=== PATIENT | male | born 1950 | race African-American/Black ===

== ENCOUNTER 2016-09-24 11:39 | Emergency (ER) | payer MEDICAID ==
[~2016-09-24] VITALS: Ht 180.3 cm; Wt 70.0 kg
[~2016-09-24 11:39] MED LIST: ASPI-1159 PO; ATOR-2 PO; FLUO-124 PO; FURO-151 PO; HYDROCODONE; LISI10TA5 PO; METO25TA6 PO; PANT40TA4 PO; RIVA10TA PO
[2016-09-24] MEDS ORDERED: SODIUM CHLORIDE 0.9% 1,000 ML IV ONE (11:53)
[2016-09-24 12:33] LABS: BASOPHILS % 0.6 % (0.0-2.0); EOSINOPHILS % 0.1 % (0.0-5.0); HEMATOCRIT. 37.8 % (42.0-52.0); HEMOGLOBIN. 12.5 g/dL (14.0-18.0); LYMPHOCYTES % 12.6 % (20.0-50.0); MEAN CORPUSCULAR HEMOGLOBIN 30.3 pg (28.0-32.0); MEAN PLATELET VOLUME 8.3 fl (7.4-10.4); NEUTROPHILS % 74.7 % (40.0-76.0); PLATELET 162 x1000/uL (130-400); RED BLOOD CELL COUNT 4.11 mill/uL (4.7-6.1)
[2016-09-24 12:44] LABS: INR 1.3; PARTIAL THROMBOPLASTIN TIME 39.3 sec (24.0-34.0)
[2016-09-24 12:51] LABS: CARBON DIOXIDE 25 mEq/L (21-32); CHLORIDE 103 mEq/L (98-107); TROPONIN I < 0.02 ng/mL (0.00-0.04)
[2016-09-24 13:19] VITALS: BP 138/79
== END 2016-09-24 14:43 | disposition left against medical advice (07) ==
LOC: ER 11:39
DX: R00.2 Palpitations (principal); R55 Syncope and collapse; I51.9 Heart disease, unspecified; I10 Essential (primary) hypertension; Z95.1 Presence of aortocoronary bypass graft; Z79.82 Long term (current) use of aspirin
CPT/HCPCS: 36415; 76775; 80053; 83735; 83880; 84484; 85025; 85610; 85730; 93005; 96360; 96361; 99285; J7030; Z7610

== ENCOUNTER 2016-12-03 01:08 | Emergency (ER) | payer MEDICAID ==
[~2016-12-03] VITALS: Ht 182.9 cm; Wt 68.0 kg
[2016-12-03 05:15] VITALS: BP 132/88
== END 2016-12-03 08:12 | disposition home or self-care (01) ==
LOC: ER 01:14
DX: Z76.0 Encounter for issue of repeat prescription (principal); I10 Essential (primary) hypertension; Z59.0 Homelessness; Z95.1 Presence of aortocoronary bypass graft; Z79.82 Long term (current) use of aspirin; Z79.01 Long term (current) use of anticoagulants
CPT/HCPCS: 99283

== ENCOUNTER 2017-04-03 14:25 | Emergency (ER) | payer MEDICARE, MEDICAID ==
[~2017-04-03] VITALS: Ht 185.4 cm; Wt 74.0 kg
[2017-04-03] MEDS ORDERED: ACETAMINOPHEN 325MG TABLET PO ONE (17:45)
[2017-04-03 19:58] LABS: BASOPHILS % 0.8 % (0.0-2.0); EOSINOPHILS % 0.5 % (0.0-5.0); HEMATOCRIT. 39.7 % (42.0-52.0); HEMOGLOBIN. 13.3 g/dL (14.0-18.0); LYMPHOCYTES % 16.9 % (20.0-50.0); MEAN CORPUSCULAR HEMOGLOBIN 31.1 pg (28.0-32.0); MEAN CORPUSCULAR VOLUME 93.1 fL (80.0-94.0); MEAN PLATELET VOLUME 8.7 fl (7.4-10.4); MONOCYTES % 9.6 % (2.0-8.0); NEUTROPHILS % 72.2 % (40.0-76.0); PLATELET 202 x1000/uL (130-400); RED BLOOD CELL COUNT 4.26 mill/uL (4.7-6.1); RED CELL DISTRIBUTION WIDTH 14.9 % (11.6-14.6)
[2017-04-03 20:02] LABS: INR 0.9; PROTHROMBIN TIME 9.9 sec (9.4-11.6)
[2017-04-03 20:06] LABS: CHLORIDE 102 mEq/L (98-107)
[2017-04-03] MEDS ORDERED: RIVAROXABAN 15 MG TABLET PO ONE (20:30)
[2017-04-03 20:45] VITALS: BP 128/77
== END 2017-04-03 20:50 | disposition home or self-care (01) ==
LOC: ER 15:49
DX: M79.672 Pain in left foot (principal); I10 Essential (primary) hypertension; Z79.01 Long term (current) use of anticoagulants; Z79.82 Long term (current) use of aspirin; Z86.718 Personal history of other venous thrombosis and embolism; Z87.891 Personal history of nicotine dependence; Z95.1 Presence of aortocoronary bypass graft
CPT/HCPCS: 36415; 73630; 80048; 85025; 85610; 93971; 99285

== ENCOUNTER 2017-05-08 23:03 | Emergency (ER) | payer MEDICARE, MEDICAID ==
[~2017-05-08] VITALS: Ht 185.4 cm; Wt 76.0 kg
[2017-05-09] MEDS ORDERED: LORAZEPAM 1MG TABLET PO ONE (06:45)
[2017-05-09] MEDS ORDERED: DEXAMETHASONE 10 MG/ML VIAL IM ONE (06:45)
[2017-05-09] MEDS ORDERED: IBUPROFEN 800MG TABLET PO ONE (06:45)
[2017-05-09 07:45] VITALS: BP 137/81
== END 2017-05-09 08:30 | disposition home or self-care (01) ==
LOC: ER 23:03
DX: M54.42 Lumbago with sciatica, left side (principal); M54.41 Lumbago with sciatica, right side; I10 Essential (primary) hypertension; F17.200 Nicotine dependence, unspecified, uncomplicated; Z86.718 Personal history of other venous thrombosis and embolism; Z79.82 Long term (current) use of aspirin
CPT/HCPCS: 96372; 99283; J1100

== ENCOUNTER 2017-08-10 18:25 | Emergency (ER) | payer MEDICARE, MEDICAID ==
[~2017-08-10] VITALS: Ht 177.8 cm; Wt 68.0 kg
[2017-08-10] MEDS ORDERED: FAMOTIDINE 20MG TABLET PO ONE (21:30)
[2017-08-10] MEDS ORDERED: ACETAMINOPHEN 325MG TABLET PO ONE (21:30)
[2017-08-10 21:41] LABS: BASOPHILS % 0.9 % (0.0-2.0); EOSINOPHILS % 1.1 % (0.0-5.0); HEMATOCRIT. 43.2 % (42.0-52.0); HEMOGLOBIN. 14.2 g/dL (14.0-18.0); LYMPHOCYTES % 37.5 % (20.0-50.0); MEAN CORPUSCULAR HEMOGLOBIN 31.9 pg (28.0-32.0); MEAN CORPUSCULAR VOLUME 97.1 fL (80.0-94.0); MEAN PLATELET VOLUME 8.2 fl (7.4-10.4); MONOCYTES % 10.1 % (2.0-8.0); NEUTROPHILS % 50.4 % (40.0-76.0); PLATELET 227 x1000/uL (130-400); RED BLOOD CELL COUNT 4.45 mill/uL (4.7-6.1); RED CELL DISTRIBUTION WIDTH 15.2 % (11.6-14.6)
[2017-08-10 21:47] LABS: CHLORIDE 105 mEq/L (98-107)
[2017-08-10 21:49] LABS: INR 1.3; PARTIAL THROMBOPLASTIN TIME 32.7 sec (23.4-31.0); PROTHROMBIN TIME 13.6 sec (9.4-11.6)
[2017-08-11 01:26] VITALS: BP 134/70
== END 2017-08-11 01:15 | disposition home or self-care (01) ==
LOC: ER 19:00
DX: K29.00 Acute gastritis without bleeding (principal); H01.003 Unspecified blepharitis right eye, unspecified eyelid; F10.10 Alcohol abuse, uncomplicated; I11.9 Hypertensive heart disease without heart failure; Y90.9 Presence of alcohol in blood, level not specified; Z86.718 Personal history of other venous thrombosis and embolism; Z79.01 Long term (current) use of anticoagulants; Z95.1 Presence of aortocoronary bypass graft
CPT/HCPCS: 36415; 80053; 83690; 85025; 85610; 85730; 99284

== ENCOUNTER 2017-12-13 18:29 | Inpatient (IN) | payer MEDICARE, MEDICAID ==
[~2017-12-13] VITALS: Ht 185.4 cm; Wt 75.3 kg
[2017-12-13] MEDS ORDERED: SODIUM CHLORIDE 0.9% 1,000 ML IV ONE (19:40)
[2017-12-13 22:16] LABS: BASOPHILS % 0.4 % (0.0-2.0); EOSINOPHILS % 1.1 % (0.0-5.0); HEMATOCRIT. 42.6 % (42.0-52.0); HEMOGLOBIN. 13.9 g/dL (14.0-18.0); LYMPHOCYTES % 25.7 % (20.0-50.0); MEAN CORPUSCULAR VOLUME 97.8 fL (80.0-94.0); MEAN PLATELET VOLUME 9.6 fl (7.4-10.4); MONOCYTES % 12.5 % (2.0-8.0); NEUTROPHILS % 60.3 % (40.0-76.0); PLATELET 147 x1000/uL (130-400); RED BLOOD CELL COUNT 4.35 mill/uL (4.7-6.1); RED CELL DISTRIBUTION WIDTH 14.8 % (11.6-14.6)
[2017-12-13 22:21] LABS: CHLORIDE 104 mEq/L (98-107)
[2017-12-13 22:24] LABS: INR 1.2; PARTIAL THROMBOPLASTIN TIME 41.9 sec (23.4-31.0); PROTHROMBIN TIME 12.5 sec (9.1-11.1)
[2017-12-13] MEDS ORDERED: ASPIRIN 325MG EC TABLET PO ONE (22:45)
[2017-12-14] MEDS ORDERED: ACETAMINOPHEN 650MG SUPP PR PRN (00:15)
[2017-12-14] MEDS ORDERED: NA PHOS,M-B/NA PHOS,DI-BA ENEMA 118ML PR PRN (00:15)
[2017-12-14] MEDS ORDERED: IPRATROPIUM/ALBUTEROL 0.5-3(2.5)MG/3ML NEB INH PRN (00:15)
[2017-12-14] MEDS ORDERED: ACETAMINOPHEN 650MG/20.3ML UDC GT PRN (00:15)
[2017-12-14] MEDS ORDERED: MAGNESIUM/ALUMINUM HYDROXIDE/SIMETHICONE 30ML UDC PO PRN (00:15)
[2017-12-14] MEDS ORDERED: ONDANSETRON HCL 4MG/2ML INJ IV PRN (00:15)
[2017-12-14] MEDS ORDERED: CLONIDINE 0.1MG TABLET PO PRN (00:15)
[2017-12-14] MEDS ORDERED: DEXTROSE 50% WATER 50ML SYRINGE IV PRN (00:15)
[2017-12-14 00:55] LABS: CLARITY URINE CLEAR (CLEAR); COLOR URINE YELLOW (YELLOW); KETONES URINE NEGATIVE (NEGATIVE); LEUKOCYTE ESTERASE URINE 3+ (NEGATIVE); NITRITE URINE NEGATIVE (NEGATIVE); OCCULT BLOOD URINE NEGATIVE (NEGATIVE); PH URINE 5.5 (4.5-8.0); PROTEIN URINE NEGATIVE (NEGATIVE); SPECIFIC GRAVITY URINE 1.011 (1.005-1.030)
[2017-12-14 01:15] VITALS: BP 135/76
[2017-12-14 01:36] LABS: *AMPHETAMINES SCREEN URINE NEGATIVE (NEGATIVE); *BARBITURATES SCREEN URINE NEGATIVE (NEGATIVE); *BENZODIAZEPINES SCREEN URINE NEGATIVE (NEGATIVE); *COCAINE SCREEN URINE NEGATIVE (NEGATIVE); CANNABINOID URINE SCREEN NEGATIVE (NEGATIVE); METHADONE URINE SCREEN NEGATIVE (NEGATIVE); OPIATES URINE SCREEN NEGATIVE (NEGATIVE); PHENCYCLIDINE URINE SCREEN NEGATIVE (NEGATIVE)
[2017-12-14 04:00] VITALS: BP 126/64
[2017-12-14] MEDS: SODIUM CHLORIDE 0.9% INJ 3ML FLUSH IVF SCH ×3 (06:00→21:18)
[2017-12-14 07:08] LABS: CREATINE KINASE 57 IU/L (39-308); CREATINE KINASE MB FRACTION < 1.0 ng/mL (0.5-3.6)
[2017-12-14] MEDS: BLOOD SUGAR DIAGNOSTIC STRIP TEST SCH ×4 (07:44→21:29)
[2017-12-14] MEDS: INSULIN LISPRO 100 UNITS/ML SUBCUT SCH ×4 (07:44→21:29)
[2017-12-14 08:00] VITALS: BP 120/73
[2017-12-14] MEDS: RIVAROXABAN 10 MG TABLET PO SCH (09:10)
[2017-12-14 12:00] VITALS: BP 130/68
[2017-12-14] MEDS ORDERED: PNEUMOCOCCAL 23-VAL P-SAC VAC 0.5 ML IM ONE (14:00)
[2017-12-14] MEDS ORDERED: INFLUENZA VIRUS VACCINE(AFLURIA) 0.5ML SYR IM ONE (14:00)
[2017-12-14 16:00] VITALS: BP 139/83
[2017-12-14] MEDS: SODIUM CHLORIDE 0.45% 1,000 ML IV SCH (17:36)
[2017-12-14 20:00] VITALS: BP 136/76
[2017-12-14 23:41] LABS: CREATINE KINASE 38 IU/L (39-308); CREATINE KINASE MB FRACTION < 1.0 ng/mL (0.5-3.6)
[2017-12-15] VITALS: BP 139/78
[2017-12-15 04:00] VITALS: BP 144/76
[2017-12-15] MEDS: SODIUM CHLORIDE 0.9% INJ 3ML FLUSH IVF SCH (05:59)
[2017-12-15] MEDS: BLOOD SUGAR DIAGNOSTIC STRIP TEST SCH ×2 (05:59→12:05)
[2017-12-15 08:04] LABS: BASOPHILS % 0.5 % (0.0-2.0); EOSINOPHILS % 0.7 % (0.0-5.0); HEMATOCRIT. 41.1 % (42.0-52.0); HEMOGLOBIN. 13.5 g/dL (14.0-18.0); LYMPHOCYTES % 19.6 % (20.0-50.0); MEAN CORPUSCULAR HEMOGLOBIN 31.8 pg (28.0-32.0); MEAN CORPUSCULAR VOLUME 96.7 fL (80.0-94.0); MEAN PLATELET VOLUME 9.6 fl (7.4-10.4); MONOCYTES % 13.1 % (2.0-8.0); NEUTROPHILS % 66.1 % (40.0-76.0); PLATELET 181 x1000/uL (130-400); RED BLOOD CELL COUNT 4.24 mill/uL (4.7-6.1); RED CELL DISTRIBUTION WIDTH 14.6 % (11.6-14.6)
[2017-12-15 08:18] LABS: CHLORIDE 105 mEq/L (98-107)
[2017-12-15 08:36] LABS: HDL CHOLESTEROL 45 mg/dL (40-59); LDL CHOLESTEROL 98 mg/dL (5-100)
[2017-12-15 08:45] VITALS: BP 136/81
[2017-12-15] MEDS: INSULIN LISPRO 100 UNITS/ML SUBCUT SCH ×2 (08:52→12:46)
[2017-12-15] MEDS ORDERED: ASPIRIN 81MG TABLET PO SCH (09:00)
[2017-12-15] MEDS ORDERED: FUROSEMIDE 40MG TABLET PO SCH (09:00)
[2017-12-15] MEDS ORDERED: FLUOXETINE HCL 20MG CAPSULE PO SCH (09:00)
[2017-12-15] MEDS: RIVAROXABAN 10 MG TABLET PO SCH (09:06)
[2017-12-15] MEDS: SODIUM CHLORIDE 0.45% 1,000 ML IV SCH (12:06)
[2017-12-15 12:25] VITALS: BP 121/71
[2017-12-15 13:47] VITALS: BP 129/71
[2017-12-15] MEDS ORDERED: ATORVASTATIN CALCIUM 40MG TABLET PO SCH (21:00)
[2017-12-18 19:11] LABS: 25-HYDROXY VITAMIN D3 8.8 ng/mL (.)
== END 2017-12-15 15:10 | disposition home or self-care (01) | DRG 422 ==
LOC: ER 18:29 → 6WST 23:49 → ENRESERV 12-14 00:20
PROVIDERS: ADMIT Family Medicine; ATTEND Family Medicine
DX: E86.0 Dehydration (principal); I11.0 Hypertensive heart disease with heart failure; E44.1 Mild protein-calorie malnutrition; I50.9 Heart failure, unspecified; R53.1 Weakness; Z59.0 Homelessness; I25.10 Atherosclerotic heart disease of native coronary artery without angina pectoris; R73.9 Hyperglycemia, unspecified; F32.9 Major depressive disorder, single episode, unspecified; E78.5 Hyperlipidemia, unspecified; Z86.718 Personal history of other venous thrombosis and embolism; Z95.1 Presence of aortocoronary bypass graft; Z68.21 Body mass index [BMI] 21.0-21.9, adult; Z79.01 Long term (current) use of anticoagulants; Z79.899 Other long term (current) drug therapy; Z79.82 Long term (current) use of aspirin; Z98.61 Coronary angioplasty status
CPT/HCPCS: 36415; 71045; 80061; 80305; 82306; 82550; 82553; 82962; 83880; 84134; 84443; 84484; 87077; 87186; 90686; 90732; 93005; 93970; 96360; 97162; 97166; 99285; J1815; J7030

== ENCOUNTER 2018-05-19 18:30 | Emergency (ER) | payer MEDICARE, OTHER ==
[~2018-05-19] VITALS: Ht 185.4 cm; Wt 77.0 kg
[2018-05-19 19:30] LABS: BASOPHILS % 1.2 % (0.0-2.0); EOSINOPHILS % 1.6 % (0.0-5.0); HEMATOCRIT. 46.5 % (42.0-52.0); HEMOGLOBIN. 15.3 g/dL (14.0-18.0); LYMPHOCYTES % 44.3 % (20.0-50.0); MEAN CORPUSCULAR HEMOGLOBIN 29.4 pg (28.0-32.0); MEAN CORPUSCULAR VOLUME 89.5 fL (80.0-94.0); MEAN PLATELET VOLUME 8.4 fl (7.4-10.4); MONOCYTES % 11.9 % (2.0-8.0); PLATELET 155 x1000/uL (130-400); RED BLOOD CELL COUNT 5.19 mill/uL (4.7-6.1); RED CELL DISTRIBUTION WIDTH 18.2 % (11.6-14.6)
[2018-05-19 19:32] LABS: CHLORIDE 107 mEq/L (98-107)
[2018-05-19 19:36] LABS: ETHANOL BLOOD 300 mg/dL
[2018-05-20 04:48] VITALS: BP 106/56
== END 2018-05-20 04:55 | disposition home or self-care (01) ==
LOC: ER 18:30
DX: F10.10 Alcohol abuse, uncomplicated (principal); F17.200 Nicotine dependence, unspecified, uncomplicated; I11.9 Hypertensive heart disease without heart failure; Z79.899 Other long term (current) drug therapy; Z79.82 Long term (current) use of aspirin; Y90.9 Presence of alcohol in blood, level not specified
CPT/HCPCS: 36415; 80320; 99283; G0480

== ENCOUNTER 2018-10-19 20:49 | Emergency (ER) | payer MEDICARE, OTHER ==
[~2018-10-19] VITALS: Ht 185.4 cm; Wt 88.0 kg
[~2018-10-19 20:49] MED LIST changes: -ASPI-1159 PO; +ASPI-1393 PO
[2018-10-19] MEDS ORDERED: LORAZEPAM 2MG/ML CPJ IM ONE (23:15)
[2018-10-20 08:44] VITALS: BP 135/90
== END 2018-10-20 08:45 | disposition home or self-care (01) ==
LOC: ER 20:49
DX: F10.229 Alcohol dependence with intoxication, unspecified (principal); Y90.9 Presence of alcohol in blood, level not specified; F91.8 Other conduct disorders
CPT/HCPCS: 70450; 96372; 99284; J2060

== ENCOUNTER 2019-02-18 18:43 | Emergency (ER) | payer MEDICARE, MEDICAID ==
[~2019-02-18] VITALS: Ht 185.4 cm; Wt 71.0 kg
[2019-02-19] MEDS ORDERED: SODIUM CHLORIDE 0.9% 1,000 ML IV ONE (05:54)
[2019-02-19 07:40] LABS: BASOPHILS % 1.1 % (0.0-2.0); EOSINOPHILS % 1.4 % (0.0-5.0); HEMATOCRIT. 47.3 % (42.0-52.0); HEMOGLOBIN. 15.7 g/dL (14.0-18.0); LYMPHOCYTES % 33.1 % (20.0-50.0); MEAN CORPUSCULAR HEMOGLOBIN 30.8 pg (28.0-32.0); MEAN CORPUSCULAR VOLUME 92.6 fL (80.0-94.0); MEAN PLATELET VOLUME 9.1 fl (7.4-10.4); MONOCYTES % 14.2 % (2.0-8.0); NEUTROPHILS % 50.2 % (40.0-76.0); PLATELET 181 x1000/uL (130-400); RED CELL DISTRIBUTION WIDTH 14.8 % (11.6-14.6)
[2019-02-19 07:45] LABS: CHLORIDE 104 mEq/L (98-107)
[2019-02-19 07:46] LABS: ETHANOL BLOOD 51 mg/dL
[2019-02-19 08:12] LABS: INR 1.1; PARTIAL THROMBOPLASTIN TIME 29.3 sec (23.4-31.0); PROTHROMBIN TIME 10.9 sec (9.6-11.0)
[2019-02-19 08:39] LABS: CLARITY URINE CLOUDY (CLEAR); COLOR URINE YELLOW (YELLOW); KETONES URINE TRACE (NEGATIVE); LEUKOCYTE ESTERASE URINE TRACE (NEGATIVE); NITRITE URINE POSITIVE (NEGATIVE); OCCULT BLOOD URINE NEGATIVE (NEGATIVE); PROTEIN URINE NEGATIVE (NEGATIVE); SPECIFIC GRAVITY URINE 1.017 (1.005-1.030)
[2019-02-19 09:10] LABS: *AMPHETAMINES SCREEN URINE NEGATIVE (NEGATIVE); *BARBITURATES SCREEN URINE NEGATIVE (NEGATIVE); *BENZODIAZEPINES SCREEN URINE NEGATIVE (NEGATIVE); *COCAINE SCREEN URINE NEGATIVE (NEGATIVE)
[2019-02-19 09:11] LABS: CANNABINOID URINE SCREEN NEGATIVE (NEGATIVE); OPIATES URINE SCREEN NEGATIVE (NEGATIVE); PHENCYCLIDINE URINE SCREEN NEGATIVE (NEGATIVE)
[2019-02-19 09:12] LABS: METHADONE URINE SCREEN NEGATIVE (NEGATIVE)
[2019-02-19] MEDS ORDERED: LORAZEPAM 2MG/ML CPJ IM ONE (09:30)
[2019-02-19] MEDS ORDERED: CEFTRIAXONE 1 G PREMIX 50 ML IV ONE (09:30)
[2019-02-19 10:39] VITALS: BP 125/78
== END 2019-02-19 10:45 | disposition home or self-care (01) ==
LOC: ER 18:43
DX: R55 Syncope and collapse (principal); N39.0 Urinary tract infection, site not specified; I10 Essential (primary) hypertension; F17.290 Nicotine dependence, other tobacco product, uncomplicated; Z98.890 Other specified postprocedural states; F10.20 Alcohol dependence, uncomplicated; Y90.2 Blood alcohol level of 40-59 mg/100 ml; Z86.718 Personal history of other venous thrombosis and embolism; Z79.82 Long term (current) use of aspirin; Z79.899 Other long term (current) drug therapy
CPT/HCPCS: 36415; 70450; 71045; 80053; 80305; 80320; 81003; 84484; 85025; 85610; 85730; 87077; 87086; 87186; 93005; 96361; 96374; 99284; J0696; J7030; G0480

== ENCOUNTER 2020-02-13 17:12 | Emergency (ER) | payer MEDICARE, MEDICAID ==
[~2020-02-13] VITALS: Ht 170.2 cm; Wt 70.0 kg
[~2020-02-13 17:12] MED LIST changes: -ASPI-1393 PO; +ASPI-1497 PO; -FLUO-124 PO; +FLUO20CA39 PO
[2020-02-13] MEDS ORDERED: HYDRALAZINE HCL 25MG TABLET PO ONE (17:45)
[2020-02-13 21:50] VITALS: BP 120/80
== END 2020-02-13 21:52 | disposition home or self-care (01) ==
LOC: ER 17:12
DX: I10 Essential (primary) hypertension (principal); F10.229 Alcohol dependence with intoxication, unspecified; Y90.0 Blood alcohol level of less than 20 mg/100 ml; Z79.82 Long term (current) use of aspirin; Z79.899 Other long term (current) drug therapy
CPT/HCPCS: 93005; 99283

== ENCOUNTER 2020-03-12 12:40 | Inpatient (IN) | payer MEDICARE, MEDICAID ==
[~2020-03-12] VITALS: Ht 182.9 cm; Wt 54.5 kg
[~2020-03-12 12:40] MED LIST changes: +LISI10TA26 PO; -LISI10TA5 PO; -PANT40TA4 PO; +PANT40TA51 PO
[2020-03-12] MEDS ORDERED: ONDANSETRON HCL 4MG/2ML INJ IV STA (13:09)
[2020-03-12] MEDS ORDERED: SODIUM CHLORIDE 0.9% 1,000 ML IV ONE (13:15)
[2020-03-12] MEDS ORDERED: PIPERACILLIN/TAZ 3.375G PREMIX 50 ML IV ONE (14:15)
[2020-03-12] MEDS ORDERED: VANCOMYCIN 1 G PREMIX 200 ML IV ONE (14:15)
[2020-03-12 14:49] LABS: BASOPHILS % 0.5 % (0.0-2.0); EOSINOPHILS % 0.4 % (0.0-5.0); HEMOGLOBIN. 16.7 g/dL (14.0-18.0); MEAN CORPUSCULAR VOLUME 89.8 fL (80.0-94.0); MEAN PLATELET VOLUME 10.8 fl (7.4-10.4); MONOCYTES % 11.5 % (2.0-8.0); NEUTROPHILS % 72.6 % (40.0-76.0); PLATELET 343 x1000/uL (130-400); RED BLOOD CELL COUNT 5.57 mill/uL (4.7-6.1); RED CELL DISTRIBUTION WIDTH 13.8 % (11.6-14.6)
[2020-03-12 14:56] LABS: CLARITY URINE CLOUDY (CLEAR); COLOR URINE DARK YELLOW (YELLOW); KETONES URINE TRACE (NEGATIVE); LEUKOCYTE ESTERASE URINE 3+ (NEGATIVE); NITRITE URINE POSITIVE (NEGATIVE); OCCULT BLOOD URINE NEGATIVE (NEGATIVE); PROTEIN URINE NEGATIVE (NEGATIVE)
[2020-03-12 15:41] LABS: CHLORIDE 100 mEq/L (98-107)
[2020-03-12 15:47] LABS: INR 1.1; PROTHROMBIN TIME 11.9 sec (9.6-11.0)
[2020-03-12] MEDS ORDERED: ACETAMINOPHEN 325MG TABLET PO PRN (22:45)
[2020-03-12] MEDS ORDERED: MAGNESIUM/ALUMINUM HYDROXIDE/SIMETHICONE 30ML UDC PO PRN (22:45)
[2020-03-12] MEDS ORDERED: ALBUTEROL 6.7GM HFA INHALER ORI PRN (22:45)
[2020-03-12] MEDS ORDERED: HYDROCODONE/ACETAMINOPHEN 5/325MG TABLET PO PRN (22:45)
[2020-03-12] MEDS ORDERED: GUAIFENESIN 200MG/10ML SUGAR FREE UDC PO PRN (22:45)
[2020-03-12] MEDS ORDERED: CEFTRIAXONE 1 G PREMIX 50 ML IV SCH (23:16)
[2020-03-12] MEDS ORDERED: ENOXAPARIN 40MG/0.4ML SYR SUBCUT SCH (23:19)
[2020-03-13 06:15] LABS: HEMATOCRIT. 48.2 % (42.0-52.0); HEMOGLOBIN. 15.5 g/dL (14.0-18.0); MEAN CORPUSCULAR HEMOGLOBIN 29.4 pg (28.0-32.0); MEAN CORPUSCULAR VOLUME 91.1 fL (80.0-94.0); MEAN PLATELET VOLUME 9.9 fl (7.4-10.4); PLATELET 263 x1000/uL (130-400); RED BLOOD CELL COUNT 5.29 mill/uL (4.7-6.1); RED CELL DISTRIBUTION WIDTH 13.2 % (11.6-14.6)
[2020-03-13 06:38] LABS: CHLORIDE 102 mEq/L (98-107)
[2020-03-13 06:51] LABS: HDL CHOLESTEROL 35 mg/dL (40-59)
[2020-03-13 06:52] LABS: PHOSPHORUS 3.2 mg/dL (2.5-4.9)
[2020-03-13 06:53] LABS: LDL CHOLESTEROL 99 mg/dL (5-100)
[2020-03-13 07:24] LABS: PLATELET ESTIMATE NORMAL
[2020-03-13] MEDS: AZITHROMYCIN 500 MG TABLET PO SCH (09:52)
[2020-03-13] MEDS: DEXAMETHASONE 10 MG/ML VIAL IV SCH (09:52)
[2020-03-13] MEDS: PANTOPRAZOLE SODIUM 40 MG/VIAL IV SCH (09:52)
[2020-03-13 12:00] VITALS: BP 110/77
[2020-03-13] MEDS: LISINOPRIL 10MG TABLET PO SCH (12:00)
[2020-03-13 15:28] VITALS: BP 138/77
[2020-03-13 16:00] VITALS: BP 122/69
[2020-03-13] MEDS: FUROSEMIDE 40MG TABLET PO SCH (16:17)
[2020-03-13] MEDS: FLUOXETINE HCL 20MG CAPSULE PO SCH (16:18)
[2020-03-13] MEDS: ASPIRIN 81MG EC TABLET PO SCH (16:18)
[2020-03-13] MEDS: METOPROLOL TARTRATE 25MG TABLET PO SCH (16:27)
[2020-03-13] MEDS: RIVAROXABAN 10 MG TABLET PO SCH (19:35)
[2020-03-13 20:00] VITALS: BP 117/73
[2020-03-13] MEDS: ATORVASTATIN CALCIUM 40MG TABLET PO SCH (22:15)
[2020-03-13] MEDS: CEFTRIAXONE 1,000 MG in DEXTROSE 5% WATER 50 ML IV SCH (22:25)
[2020-03-13] MEDS: LINEZOLID 600 MG PREMIX 300 ML IV SCH (22:25)
[2020-03-14] VITALS: BP_SYST 129; BP_SYST 142; BP_DIAS 63; BP_DIAS 83
[2020-03-14] MEDS: LORAZEPAM 2MG/ML CPJ IV PRN ×2 (00:47→19:33)
[2020-03-14 04:00] VITALS: BP 97/61
[2020-03-14] MEDS: LINEZOLID 600 MG PREMIX 300 ML IV SCH ×2 (09:00→20:02)
[2020-03-14] MEDS: LISINOPRIL 10MG TABLET PO SCH (09:00)
[2020-03-14] MEDS: METOPROLOL TARTRATE 25MG TABLET PO SCH ×2 (09:00→17:00)
[2020-03-14] MEDS: AZITHROMYCIN 500 MG TABLET PO SCH (09:01)
[2020-03-14] MEDS: FUROSEMIDE 40MG TABLET PO SCH (09:01)
[2020-03-14] MEDS: DOCUSATE SODIUM 100MG CAPSULE PO PRN (09:01)
[2020-03-14] MEDS: ASPIRIN 81MG EC TABLET PO SCH (09:01)
[2020-03-14] MEDS: FLUOXETINE HCL 20MG CAPSULE PO SCH (09:01)
[2020-03-14] MEDS: PANTOPRAZOLE SODIUM 40 MG/VIAL IV SCH (09:02)
[2020-03-14] MEDS: DEXAMETHASONE 10 MG/ML VIAL IV SCH (09:02)
[2020-03-14 10:14] LABS: HEMATOCRIT. 47.7 % (42.0-52.0); HEMOGLOBIN. 14.9 g/dL (14.0-18.0); MEAN CORPUSCULAR HEMOGLOBIN 29.2 pg (28.0-32.0); MEAN CORPUSCULAR VOLUME 93.2 fL (80.0-94.0); MEAN PLATELET VOLUME 10.3 fl (7.4-10.4); PLATELET 242 x1000/uL (130-400); RED BLOOD CELL COUNT 5.11 mill/uL (4.7-6.1); RED CELL DISTRIBUTION WIDTH 13.5 % (11.6-14.6)
[2020-03-14 10:23] LABS: CHLORIDE 108 mEq/L (98-107)
[2020-03-14 16:43] LABS: PLATELET ESTIMATE NORMAL
[2020-03-14 20:00] VITALS: BP 134/77
[2020-03-14] MEDS: ATORVASTATIN CALCIUM 40MG TABLET PO SCH (20:02)
[2020-03-14] MEDS: CEFTRIAXONE 1,000 MG in DEXTROSE 5% WATER 50 ML IV SCH (20:03)
[2020-03-15] VITALS: BP 102/60
[2020-03-15 04:00] VITALS: BP 114/57
[2020-03-15 08:00] VITALS: BP 95/60
[2020-03-15] MEDS: METOPROLOL TARTRATE 25MG TABLET PO SCH ×2 (09:00→17:00)
[2020-03-15] MEDS: LISINOPRIL 10MG TABLET PO SCH (09:00)
[2020-03-15] MEDS: DEXAMETHASONE 10 MG/ML VIAL IV SCH (09:39)
[2020-03-15] MEDS: AZITHROMYCIN 500 MG TABLET PO SCH (09:40)
[2020-03-15] MEDS: ASPIRIN 81MG EC TABLET PO SCH (09:40)
[2020-03-15] MEDS: FLUOXETINE HCL 20MG CAPSULE PO SCH (09:40)
[2020-03-15] MEDS: FUROSEMIDE 40MG TABLET PO SCH (09:41)
[2020-03-15] MEDS: FAMOTIDINE 20MG TABLET PO SCH (09:42)
[2020-03-15] MEDS ORDERED: ALBU18HF2 IH (16:33)
[2020-03-15] MEDS: RIVAROXABAN 10 MG TABLET PO SCH ×2 (17:54→17:56)
[2020-03-15 20:00] VITALS: BP 114/70
[2020-03-16] VITALS (7 sets, daily range): BP systolic 97–120; BP diastolic 53–69
[2020-03-16] MEDS: FAMOTIDINE 20MG TABLET PO SCH ×3 (00:12→20:35)
[2020-03-16] MEDS: ATORVASTATIN CALCIUM 40MG TABLET PO SCH ×2 (00:12→20:36)
[2020-03-16] MEDS: CEFTRIAXONE 1,000 MG in DEXTROSE 5% WATER 50 ML IV SCH ×2 (00:12→20:35)
[2020-03-16] MEDS: METOPROLOL TARTRATE 25MG TABLET PO SCH ×3 (09:00→17:00)
[2020-03-16] MEDS: LISINOPRIL 10MG TABLET PO SCH ×2 (09:00→09:45)
[2020-03-16] MEDS: ZINC SULFATE 220 MG ( 50 ) CAPSULE PO SCH (09:45)
[2020-03-16] MEDS: FLUOXETINE HCL 20MG CAPSULE PO SCH (09:45)
[2020-03-16] MEDS: AZITHROMYCIN 500 MG TABLET PO SCH (09:46)
[2020-03-16] MEDS: FUROSEMIDE 40MG TABLET PO SCH (09:46)
[2020-03-16] MEDS: ASCORBIC ACID 500 MG TABLET PO SCH (09:46)
[2020-03-16] MEDS: ASPIRIN 81MG EC TABLET PO SCH (09:46)
[2020-03-16] MEDS: DEXAMETHASONE 10 MG/ML VIAL IV SCH (09:46)
[2020-03-16] MEDS: RIVAROXABAN 10 MG TABLET PO SCH (18:07)
[2020-03-16] MEDS: LORAZEPAM 2MG/ML CPJ IV PRN (20:50)
[2020-03-17] VITALS: BP 120/71
[2020-03-17 04:00] VITALS: BP 136/70
[2020-03-17 08:00] VITALS: BP 108/69
[2020-03-17] MEDS: FAMOTIDINE 20MG TABLET PO SCH ×2 (08:33→21:02)
[2020-03-17] MEDS: ASPIRIN 81MG EC TABLET PO SCH (08:33)
[2020-03-17] MEDS: DEXAMETHASONE 10 MG/ML VIAL IV SCH (08:34)
[2020-03-17] MEDS: METOPROLOL TARTRATE 25MG TABLET PO SCH (08:34)
[2020-03-17] MEDS: ASCORBIC ACID 500 MG TABLET PO SCH (08:34)
[2020-03-17] MEDS: LISINOPRIL 10MG TABLET PO SCH (08:34)
[2020-03-17] MEDS: ZINC SULFATE 220 MG ( 50 ) CAPSULE PO SCH (08:34)
[2020-03-17] MEDS: FLUOXETINE HCL 20MG CAPSULE PO SCH (08:34)
[2020-03-17] MEDS: FUROSEMIDE 40MG TABLET PO SCH (08:34)
[2020-03-17 12:00] VITALS: BP 115/73
[2020-03-17] MEDS: RIVAROXABAN 10 MG TABLET PO SCH (18:01)
[2020-03-17 20:00] VITALS: BP 100/68
[2020-03-17] MEDS: CARVEDILOL 6.25 MG TABLET PO SCH (20:56)
[2020-03-17] MEDS: ATORVASTATIN CALCIUM 40MG TABLET PO SCH (21:02)
[2020-03-18] VITALS: BP 121/79
[2020-03-18 04:00] VITALS: BP 113/78
[2020-03-18 08:00] VITALS: BP 109/52
[2020-03-18] MEDS: CARVEDILOL 6.25 MG TABLET PO SCH ×2 (09:00→20:44)
[2020-03-18] MEDS: LISINOPRIL 10MG TABLET PO SCH (09:00)
[2020-03-18] MEDS: FLUOXETINE HCL 20MG CAPSULE PO SCH (09:10)
[2020-03-18] MEDS: ASCORBIC ACID 500 MG TABLET PO SCH (09:10)
[2020-03-18] MEDS: FUROSEMIDE 40MG TABLET PO SCH (09:10)
[2020-03-18] MEDS: FAMOTIDINE 20MG TABLET PO SCH ×2 (09:10→20:44)
[2020-03-18] MEDS: ZINC SULFATE 220 MG ( 50 ) CAPSULE PO SCH (09:10)
[2020-03-18] MEDS: ASPIRIN 81MG EC TABLET PO SCH (09:10)
[2020-03-18] MEDS: DEXAMETHASONE 10 MG/ML VIAL IV SCH (09:10)
[2020-03-18] MEDS: RIVAROXABAN 10 MG TABLET PO SCH (17:30)
[2020-03-18] MEDS: ATORVASTATIN CALCIUM 40MG TABLET PO SCH (20:43)
[2020-03-19 08:00] VITALS: BP 103/53
[2020-03-19] MEDS: LISINOPRIL 10MG TABLET PO SCH (09:00)
[2020-03-19] MEDS: CARVEDILOL 6.25 MG TABLET PO SCH ×2 (09:00→21:44)
[2020-03-19] MEDS: ASPIRIN 81MG EC TABLET PO SCH (09:20)
[2020-03-19] MEDS: ASCORBIC ACID 500 MG TABLET PO SCH (09:20)
[2020-03-19] MEDS: ZINC SULFATE 220 MG ( 50 ) CAPSULE PO SCH (09:20)
[2020-03-19] MEDS: FLUOXETINE HCL 20MG CAPSULE PO SCH (09:20)
[2020-03-19] MEDS: DEXAMETHASONE 10 MG/ML VIAL IV SCH (09:21)
[2020-03-19] MEDS: FUROSEMIDE 40MG TABLET PO SCH (09:21)
[2020-03-19] MEDS: FAMOTIDINE 20MG TABLET PO SCH ×2 (11:27→21:43)
[2020-03-19 16:00] VITALS: BP 109/59
[2020-03-19] MEDS: RIVAROXABAN 10 MG TABLET PO SCH (17:22)
[2020-03-19 20:00] VITALS: BP 110/62
[2020-03-19] MEDS: ATORVASTATIN CALCIUM 40MG TABLET PO SCH (21:43)
[2020-03-20] VITALS: BP 107/54
[2020-03-20 04:00] VITALS: BP 109/50
[2020-03-20 08:00] VITALS: BP 122/72
[2020-03-20] MEDS: DEXAMETHASONE 10 MG/ML VIAL IV SCH (09:55)
[2020-03-20] MEDS: CARVEDILOL 6.25 MG TABLET PO SCH ×2 (09:56→21:00)
[2020-03-20] MEDS: LISINOPRIL 10MG TABLET PO SCH (09:56)
[2020-03-20] MEDS: ASCORBIC ACID 500 MG TABLET PO SCH (09:56)
[2020-03-20] MEDS: FAMOTIDINE 20MG TABLET PO SCH ×2 (09:56→21:00)
[2020-03-20] MEDS: ZINC SULFATE 220 MG ( 50 ) CAPSULE PO SCH (09:56)
[2020-03-20] MEDS: FLUOXETINE HCL 20MG CAPSULE PO SCH (09:56)
[2020-03-20] MEDS: ASPIRIN 81MG EC TABLET PO SCH (09:56)
[2020-03-20] MEDS: FUROSEMIDE 40MG TABLET PO SCH (09:56)
[2020-03-20 12:00] VITALS: BP 128/74
[2020-03-20 16:00] VITALS: BP 99/50
[2020-03-20] MEDS: RIVAROXABAN 10 MG TABLET PO SCH (18:10)
[2020-03-20 20:00] VITALS: BP 101/65
[2020-03-20] MEDS: ATORVASTATIN CALCIUM 40MG TABLET PO SCH (20:59)
[2020-03-21] VITALS: BP 105/61
[2020-03-21 04:00] VITALS: BP 100/59
[2020-03-21 08:00] VITALS: BP 100/58
[2020-03-21] MEDS: LISINOPRIL 10MG TABLET PO SCH (09:00)
[2020-03-21] MEDS: CARVEDILOL 6.25 MG TABLET PO SCH ×2 (09:00→22:20)
[2020-03-21] MEDS: ASCORBIC ACID 500 MG TABLET PO SCH (10:51)
[2020-03-21] MEDS: DEXAMETHASONE 10 MG/ML VIAL IV SCH (10:52)
[2020-03-21] MEDS: FLUOXETINE HCL 20MG CAPSULE PO SCH (10:52)
[2020-03-21] MEDS: FUROSEMIDE 40MG TABLET PO SCH (10:53)
[2020-03-21] MEDS: ASPIRIN 81MG EC TABLET PO SCH (10:53)
[2020-03-21] MEDS: ZINC SULFATE 220 MG ( 50 ) CAPSULE PO SCH (10:54)
[2020-03-21] MEDS: FAMOTIDINE 20MG TABLET PO SCH ×2 (11:55→22:20)
[2020-03-21 12:00] VITALS: BP 101/65
[2020-03-21 16:00] VITALS: BP 129/74
[2020-03-21 18:30] LABS: HEMATOCRIT. 32.8 % (42.0-52.0); HEMOGLOBIN. 10.5 g/dL (14.0-18.0); MEAN CORPUSCULAR HEMOGLOBIN 29.5 pg (28.0-32.0); MEAN CORPUSCULAR VOLUME 91.7 fL (80.0-94.0); MEAN PLATELET VOLUME 9.4 fl (7.4-10.4); PLATELET 321 x1000/uL (130-400); RED BLOOD CELL COUNT 3.57 mill/uL (4.7-6.1); RED CELL DISTRIBUTION WIDTH 13.7 % (11.6-14.6)
[2020-03-21] MEDS: RIVAROXABAN 10 MG TABLET PO SCH (18:42)
[2020-03-21 18:49] LABS: CHLORIDE 103 mEq/L (98-107)
[2020-03-21 18:58] LABS: PLATELET ESTIMATE NORMAL
[2020-03-21 20:00] VITALS: BP 102/59
[2020-03-21] MEDS: ATORVASTATIN CALCIUM 40MG TABLET PO SCH (22:19)
[2020-03-22] VITALS: BP_SYST 105; BP_SYST 97; BP_DIAS 61; BP_DIAS 62
[2020-03-22 04:00] VITALS: BP 99/60
[2020-03-22] MEDS: FAMOTIDINE 20MG TABLET PO SCH ×2 (09:00→20:26)
[2020-03-22] MEDS: DEXAMETHASONE 10 MG/ML VIAL IV SCH (09:59)
[2020-03-22] MEDS: FUROSEMIDE 40MG TABLET PO SCH (09:59)
[2020-03-22] MEDS: CARVEDILOL 6.25 MG TABLET PO SCH ×2 (09:59→20:25)
[2020-03-22] MEDS: LISINOPRIL 10MG TABLET PO SCH (09:59)
[2020-03-22] MEDS: ASPIRIN 81MG EC TABLET PO SCH (09:59)
[2020-03-22] MEDS: ASCORBIC ACID 500 MG TABLET PO SCH (09:59)
[2020-03-22] MEDS: ZINC SULFATE 220 MG ( 50 ) CAPSULE PO SCH (09:59)
[2020-03-22] MEDS: FLUOXETINE HCL 20MG CAPSULE PO SCH (09:59)
[2020-03-22 12:00] VITALS: BP 111/67
[2020-03-22] MEDS: RIVAROXABAN 10 MG TABLET PO SCH (16:50)
[2020-03-22 20:00] VITALS: BP 94/49
[2020-03-22] MEDS: ATORVASTATIN CALCIUM 40MG TABLET PO SCH (20:26)
[2020-03-23 04:04] VITALS: BP 94/59
[2020-03-23] MEDS: LISINOPRIL 10MG TABLET PO SCH (09:00)
[2020-03-23] MEDS: DEXAMETHASONE 10 MG/ML VIAL IV SCH (09:00)
[2020-03-23] MEDS: CARVEDILOL 6.25 MG TABLET PO SCH ×2 (09:00→21:00)
[2020-03-23] MEDS: ZINC SULFATE 220 MG ( 50 ) CAPSULE PO SCH (09:00)
[2020-03-23] MEDS: ASCORBIC ACID 500 MG TABLET PO SCH (09:00)
[2020-03-23] MEDS: FUROSEMIDE 40MG TABLET PO SCH (09:00)
[2020-03-23] MEDS: FAMOTIDINE 20MG TABLET PO SCH ×2 (09:00→21:00)
[2020-03-23] MEDS: ASPIRIN 81MG EC TABLET PO SCH (09:00)
[2020-03-23] MEDS: FLUOXETINE HCL 20MG CAPSULE PO SCH (09:00)
[2020-03-23] MEDS ORDERED: SODIUM CHLORIDE 0.9% 1000ML BAG (SEPSIS BOLUS) IV NR (11:00)
[2020-03-23 11:59] LABS: CHLORIDE 107 mEq/L (98-107)
[2020-03-23 12:23] LABS: HEMATOCRIT. 29.9 % (42.0-52.0); HEMOGLOBIN. 9.5 g/dL (14.0-18.0); MEAN CORPUSCULAR VOLUME 94.6 fL (80.0-94.0); MEAN PLATELET VOLUME 10.2 fl (7.4-10.4); PLATELET 240 x1000/uL (130-400); RED BLOOD CELL COUNT 3.16 mill/uL (4.7-6.1); RED CELL DISTRIBUTION WIDTH 14.3 % (11.6-14.6)
[2020-03-23 12:47] LABS: BG BASE EXCESS -0.3 mmol/L (-2.0-2.0); BG CARBOXYHEMOGLOBIN 0.3 % (0.5-1.5); BG DEOXYHEMOGLOBIN 0.8 % (0.0-5.0); BG FRACTION INSPIRED OXYGEN 48; BG METHEMOGLOBIN 0.2 % (0.0-1.5); BG OXYGEN SATURATION 99.2 % (92.0-98.5); BG OXYHEMOGLOBIN 98.7 % (94.0-97.0); BG PCO2 32.3 mmHg (35.0-45.0); BG PO2 213.9 mmHg (75.0-100.0); BG SAMPLE SITE RIGHT RADIAL; BG TOTAL HEMOGLOBIN 8.9 g/dL (12.0-18.0); BG VENT MODE NASAL CANNULA
[2020-03-23 14:26] LABS: PLATELET ESTIMATE NORMAL
[2020-03-23] MEDS: RIVAROXABAN 10 MG TABLET PO SCH (17:00)
[2020-03-23] MEDS ORDERED: BISACODYL 10MG SUPP PR NR (18:00)
[2020-03-23] MEDS: ONDANSETRON HCL 4MG/2ML INJ IV PRN (18:02)
[2020-03-23] MEDS ORDERED: SODIUM CHLORIDE 0.9% 1000ML BAG (SEPSIS BOLUS) IV ONE (20:30)
[2020-03-23] MEDS: MIDODRINE HCL 5MG TABLET PO SCH (21:00)
[2020-03-23] MEDS: PANTOPRAZOLE SODIUM 40 MG/VIAL IV SCH (21:00)
[2020-03-23] MEDS: ATORVASTATIN CALCIUM 40MG TABLET PO SCH (21:00)
[2020-03-24] VITALS (19 sets, daily range): BP systolic 73–127; BP diastolic 27–68
[2020-03-24] MEDS ORDERED: CARVEDILOL 6.25 MG TABLET PO SCH (00:15)
[2020-03-24] MEDS: MIDODRINE HCL 5MG TABLET PO SCH ×3 (06:30→17:00)
[2020-03-24] MEDS: DEXAMETHASONE 10 MG/ML VIAL IV SCH (08:33)
[2020-03-24] MEDS: ASPIRIN 81MG EC TABLET PO SCH (08:33)
[2020-03-24] MEDS: ZINC SULFATE 220 MG ( 50 ) CAPSULE PO SCH (08:33)
[2020-03-24] MEDS: FLUOXETINE HCL 20MG CAPSULE PO SCH (08:33)
[2020-03-24] MEDS: CARVEDILOL 6.25 MG TABLET PO SCH ×3 (08:33→22:41)
[2020-03-24] MEDS: PANTOPRAZOLE SODIUM 40 MG/VIAL IV SCH ×2 (08:33→22:43)
[2020-03-24] MEDS: ASCORBIC ACID 500 MG TABLET PO SCH (08:33)
[2020-03-24] MEDS: FAMOTIDINE 20MG TABLET PO SCH (08:33)
[2020-03-24] MEDS: LISINOPRIL 10MG TABLET PO SCH (08:36)
[2020-03-24 08:53] LABS: BASOPHILS % 0.4 % (0.0-2.0); EOSINOPHILS % 0.2 % (0.0-5.0); HEMATOCRIT. 23.5 % (42.0-52.0); HEMOGLOBIN. 7.7 g/dL (14.0-18.0); LYMPHOCYTES % 18.9 % (20.0-50.0); MEAN CORPUSCULAR HEMOGLOBIN 30.1 pg (28.0-32.0); MEAN CORPUSCULAR VOLUME 91.2 fL (80.0-94.0); MEAN PLATELET VOLUME 10.1 fl (7.4-10.4); MONOCYTES % 7.8 % (2.0-8.0); NEUTROPHILS % 72.7 % (40.0-76.0); PLATELET 278 x1000/uL (130-400); RED BLOOD CELL COUNT 2.57 mill/uL (4.7-6.1)
[2020-03-24 09:06] LABS: CHLORIDE 110 mEq/L (98-107)
[2020-03-24] MEDS: DILTIAZEM HCL 30MG TABLET PO SCH ×2 (11:00→21:00)
[2020-03-24] MEDS ORDERED: PANTOPRAZOLE SODIUM 40 MG/VIAL IV SCH (12:30)
[2020-03-24] MEDS ORDERED: SODIUM CHLORIDE 0.9% 500 ML IV ONE ×2 (12:30→22:15)
[2020-03-24] MEDS ORDERED: MIDODRINE HCL 5MG TABLET PO SCH ×2 (12:30→17:00)
[2020-03-24] MEDS: ONDANSETRON HCL 4MG/2ML INJ IV PRN ×2 (13:51→18:57)
[2020-03-24] MEDS: SUCRALFATE 1G TABLET PO SCH ×3 (17:44→22:38)
[2020-03-24] MEDS: METOCLOPRAMIDE HCL 10MG/2ML VIAL IV SCH (17:45)
[2020-03-24] MEDS: DIGOXIN 250MCG TABLET PO SCH (17:45)
[2020-03-24] MEDS: ATORVASTATIN CALCIUM 40MG TABLET PO SCH ×2 (21:00→22:42)
[2020-03-24] MEDS ORDERED: SODIUM CHLORIDE 0.9% 1,000 ML IV SCH (22:30)
[2020-03-25] VITALS: BP 113/67
[2020-03-25] MEDS: METOCLOPRAMIDE HCL 10MG/2ML VIAL IV SCH ×4 (01:14→17:12)
[2020-03-25 04:00] VITALS: BP 102/53
[2020-03-25 05:59] LABS: BASOPHILS % 0.2 % (0.0-2.0); HEMATOCRIT. 24.9 % (42.0-52.0); HEMOGLOBIN. 8.3 g/dL (14.0-18.0); LYMPHOCYTES % 11.8 % (20.0-50.0); MEAN CORPUSCULAR HEMOGLOBIN 30.5 pg (28.0-32.0); MEAN PLATELET VOLUME 10.1 fl (7.4-10.4); MONOCYTES % 8.2 % (2.0-8.0); NEUTROPHILS % 79.8 % (40.0-76.0); PLATELET 209 x1000/uL (130-400); RED BLOOD CELL COUNT 2.74 mill/uL (4.7-6.1); RED CELL DISTRIBUTION WIDTH 14.2 % (11.6-14.6)
[2020-03-25 06:00] VITALS: BP 113/53
[2020-03-25 06:06] LABS: CHLORIDE 113 mEq/L (98-107)
[2020-03-25 06:14] LABS: TOTAL IRON BINDING CAPACITY 188 ug/dL (250-450)
[2020-03-25] MEDS: SUCRALFATE 1G TABLET PO SCH ×2 (06:23→11:29)
[2020-03-25 07:01] LABS: FOLIC ACID (FOLATE) SERUM 6.7 ng/mL (>5.38)
[2020-03-25 08:00] VITALS: BP 134/70
[2020-03-25] MEDS: PANTOPRAZOLE SODIUM 40 MG/VIAL IV SCH ×2 (10:03→20:50)
[2020-03-25] MEDS: DEXAMETHASONE 10 MG/ML VIAL IV SCH (10:04)
[2020-03-25] MEDS: ASCORBIC ACID 500 MG TABLET PO SCH (10:05)
[2020-03-25] MEDS: ASPIRIN 81MG EC TABLET PO SCH (10:05)
[2020-03-25] MEDS: CARVEDILOL 6.25 MG TABLET PO SCH ×2 (10:07→21:00)
[2020-03-25] MEDS: MIDODRINE HCL 5MG TABLET PO SCH ×2 (10:08→17:19)
[2020-03-25] MEDS: FLUOXETINE HCL 20MG CAPSULE PO SCH (10:08)
[2020-03-25] MEDS: ZINC SULFATE 220 MG ( 50 ) CAPSULE PO SCH (10:08)
[2020-03-25] MEDS: DILTIAZEM HCL 30MG TABLET PO SCH ×2 (10:08→21:00)
[2020-03-25] MEDS: SODIUM CHLORIDE 0.9% 1,000 ML IV SCH ×2 (11:29→18:15)
[2020-03-25] MEDS: SUCRALFATE 1 G/10 ML UDC PO SCH ×2 (17:12→21:00)
[2020-03-25] MEDS: DIGOXIN 250MCG TABLET PO SCH (17:19)
[2020-03-25 19:28] VITALS: BP 126/61
[2020-03-25] MEDS: ATORVASTATIN CALCIUM 40MG TABLET PO SCH (21:00)
[2020-03-25 22:01] VITALS: BP 136/64
[2020-03-26] VITALS (15 sets, daily range): BP systolic 106–170; BP diastolic 51–88
[2020-03-26] MEDS: METOCLOPRAMIDE HCL 10MG/2ML VIAL IV SCH ×5 (00:34→23:29)
[2020-03-26] MEDS: SUCRALFATE 1 G/10 ML UDC PO SCH ×4 (06:44→21:06)
[2020-03-26 07:22] LABS: CHLORIDE 118 mEq/L (98-107)
[2020-03-26] MEDS: DOCUSATE SODIUM 100MG CAPSULE PO PRN ×2 (08:01→17:00)
[2020-03-26] MEDS: DEXAMETHASONE 10 MG/ML VIAL IV SCH (08:02)
[2020-03-26] MEDS: ZINC SULFATE 220 MG ( 50 ) CAPSULE PO SCH (08:02)
[2020-03-26] MEDS: MIDODRINE HCL 5MG TABLET PO SCH ×2 (08:04→17:00)
[2020-03-26] MEDS: DILTIAZEM HCL 30MG TABLET PO SCH ×2 (08:05→21:07)
[2020-03-26] MEDS: CARVEDILOL 6.25 MG TABLET PO SCH ×2 (08:05→21:06)
[2020-03-26] MEDS: ASPIRIN 81MG EC TABLET PO SCH (08:05)
[2020-03-26] MEDS: FLUOXETINE HCL 20MG CAPSULE PO SCH (08:06)
[2020-03-26] MEDS: PANTOPRAZOLE SODIUM 40 MG/VIAL IV SCH ×2 (08:06→21:06)
[2020-03-26] MEDS: ASCORBIC ACID 500 MG TABLET PO SCH (08:06)
[2020-03-26 09:49] LABS: BASOPHILS % 0.2 % (0.0-2.0); EOSINOPHILS % 0.2 % (0.0-5.0); HEMATOCRIT. 23.8 % (42.0-52.0); HEMOGLOBIN. 7.5 g/dL (14.0-18.0); LYMPHOCYTES % 11.8 % (20.0-50.0); MEAN CORPUSCULAR HEMOGLOBIN 30.1 pg (28.0-32.0); MEAN CORPUSCULAR VOLUME 94.9 fL (80.0-94.0); MEAN PLATELET VOLUME 11.5 fl (7.4-10.4); MONOCYTES % 11.6 % (2.0-8.0); NEUTROPHILS % 76.2 % (40.0-76.0); PLATELET 94 x1000/uL (130-400); RED CELL DISTRIBUTION WIDTH 15.1 % (11.6-14.6)
[2020-03-26] MEDS: SODIUM CHLORIDE 0.9% 1,000 ML IV SCH (13:02)
[2020-03-26] MEDS: DIGOXIN 250MCG TABLET PO SCH (17:00)
[2020-03-26] MEDS: ATORVASTATIN CALCIUM 40MG TABLET PO SCH (21:06)
[2020-03-27] VITALS (13 sets, daily range): BP systolic 106–162; BP diastolic 46–80
[2020-03-27] MEDS: SODIUM CHLORIDE 0.9% 1,000 ML IV SCH ×2 (04:24→16:28)
[2020-03-27] MEDS: METOCLOPRAMIDE HCL 10MG/2ML VIAL IV SCH ×4 (06:01→23:52)
[2020-03-27] MEDS: SUCRALFATE 1 G/10 ML UDC PO SCH ×4 (06:01→20:07)
[2020-03-27 07:00] LABS: BASOPHILS % 0.1 % (0.0-2.0); EOSINOPHILS % 0.1 % (0.0-5.0); HEMATOCRIT. 25.8 % (42.0-52.0); HEMOGLOBIN. 8.7 g/dL (14.0-18.0); LYMPHOCYTES % 11.3 % (20.0-50.0); MEAN CORPUSCULAR HEMOGLOBIN 31.1 pg (28.0-32.0); MEAN CORPUSCULAR VOLUME 92.3 fL (80.0-94.0); MEAN PLATELET VOLUME 10.3 fl (7.4-10.4); MONOCYTES % 7.8 % (2.0-8.0); NEUTROPHILS % 80.7 % (40.0-76.0); PLATELET 142 x1000/uL (130-400); RED BLOOD CELL COUNT 2.79 mill/uL (4.7-6.1); RED CELL DISTRIBUTION WIDTH 14.8 % (11.6-14.6)
[2020-03-27 07:37] LABS: CHLORIDE 113 mEq/L (98-107)
[2020-03-27] MEDS: ASPIRIN 81MG EC TABLET PO SCH (09:00)
[2020-03-27] MEDS: CARVEDILOL 6.25 MG TABLET PO SCH ×2 (09:00→20:07)
[2020-03-27] MEDS: FLUOXETINE HCL 20MG CAPSULE PO SCH (09:47)
[2020-03-27] MEDS: MIDODRINE HCL 5MG TABLET PO SCH (09:47)
[2020-03-27] MEDS: DEXAMETHASONE 10 MG/ML VIAL IV SCH (09:48)
[2020-03-27] MEDS: ZINC SULFATE 220 MG ( 50 ) CAPSULE PO SCH (09:48)
[2020-03-27] MEDS: PANTOPRAZOLE SODIUM 40 MG/VIAL IV SCH ×2 (09:48→20:07)
[2020-03-27] MEDS: ASCORBIC ACID 500 MG TABLET PO SCH (09:48)
[2020-03-27] MEDS: ATORVASTATIN CALCIUM 40MG TABLET PO SCH (20:07)
[2020-03-28] VITALS (10 sets, daily range): BP systolic 114–167; BP diastolic 56–87
[2020-03-28] MEDS: METOCLOPRAMIDE HCL 10MG/2ML VIAL IV SCH ×3 (06:25→18:04)
[2020-03-28] MEDS: SUCRALFATE 1 G/10 ML UDC PO SCH ×4 (06:25→21:18)
[2020-03-28 07:34] LABS: CHLORIDE 109 mEq/L (98-107)
[2020-03-28 08:09] LABS: BASOPHILS % 0.2 % (0.0-2.0); HEMOGLOBIN. 8.2 g/dL (14.0-18.0); LYMPHOCYTES % 11.1 % (20.0-50.0); MEAN CORPUSCULAR HEMOGLOBIN 31.3 pg (28.0-32.0); MEAN CORPUSCULAR VOLUME 91.3 fL (80.0-94.0); MEAN PLATELET VOLUME 10.7 fl (7.4-10.4); NEUTROPHILS % 82.7 % (40.0-76.0); PLATELET 134 x1000/uL (130-400); RED BLOOD CELL COUNT 2.62 mill/uL (4.7-6.1); RED CELL DISTRIBUTION WIDTH 14.6 % (11.6-14.6)
[2020-03-28] MEDS: ZINC SULFATE 220 MG ( 50 ) CAPSULE PO SCH (09:03)
[2020-03-28] MEDS: FLUOXETINE HCL 20MG CAPSULE PO SCH (09:03)
[2020-03-28] MEDS: ASCORBIC ACID 500 MG TABLET PO SCH (09:03)
[2020-03-28] MEDS: CARVEDILOL 3.125 MG TABLET PO SCH ×2 (09:04→21:19)
[2020-03-28] MEDS: PANTOPRAZOLE SODIUM 40 MG/VIAL IV SCH ×3 (09:55→23:37)
[2020-03-28] MEDS: DEXAMETHASONE 10 MG/ML VIAL IV SCH (09:56)
[2020-03-28] MEDS: SODIUM CHLORIDE 0.9% 1,000 ML IV SCH (19:30)
[2020-03-28] MEDS: ATORVASTATIN CALCIUM 40MG TABLET PO SCH (21:18)
[2020-03-29] VITALS (10 sets, daily range): BP systolic 129–167; BP diastolic 72–85
[2020-03-29] MEDS: METOCLOPRAMIDE HCL 10MG/2ML VIAL IV SCH ×4 (06:20→18:37)
[2020-03-29] MEDS: SUCRALFATE 1 G/10 ML UDC PO SCH ×4 (06:20→20:02)
[2020-03-29 06:50] LABS: CHLORIDE 109 mEq/L (98-107)
[2020-03-29 07:04] LABS: BASOPHILS % 0.1 % (0.0-2.0); EOSINOPHILS % 0.4 % (0.0-5.0); HEMATOCRIT. 23.5 % (42.0-52.0); HEMOGLOBIN. 7.8 g/dL (14.0-18.0); LYMPHOCYTES % 14.2 % (20.0-50.0); MEAN CORPUSCULAR HEMOGLOBIN 30.2 pg (28.0-32.0); MEAN PLATELET VOLUME 10.6 fl (7.4-10.4); MONOCYTES % 7.7 % (2.0-8.0); NEUTROPHILS % 77.6 % (40.0-76.0); PLATELET 122 x1000/uL (130-400); RED BLOOD CELL COUNT 2.59 mill/uL (4.7-6.1)
[2020-03-29 07:12] LABS: PROTHROMBIN TIME 10.9 sec (9.6-11.0)
[2020-03-29] MEDS: CARVEDILOL 3.125 MG TABLET PO SCH ×2 (08:40→21:00)
[2020-03-29] MEDS: ASCORBIC ACID 500 MG TABLET PO SCH (08:41)
[2020-03-29] MEDS: FLUOXETINE HCL 20MG CAPSULE PO SCH (08:41)
[2020-03-29] MEDS: DEXAMETHASONE 10 MG/ML VIAL IV SCH (08:41)
[2020-03-29] MEDS: PANTOPRAZOLE SODIUM 40 MG/VIAL IV SCH ×2 (08:41→20:02)
[2020-03-29] MEDS: ZINC SULFATE 220 MG ( 50 ) CAPSULE PO SCH (08:41)
[2020-03-29] MEDS: AMLODIPINE 2.5MG TABLET PO SCH (09:26)
[2020-03-29] MEDS: SODIUM CHLORIDE 0.9% 1,000 ML IV SCH (15:30)
[2020-03-29] MEDS ORDERED: MIDAZOLAM HCL 2 MG/2 ML VIAL ONE (15:32)
[2020-03-29] MEDS ORDERED: PROPOFOL 200MG/20ML VIAL IV ONE (15:32)
[2020-03-29] MEDS ORDERED: LIDOCAINE HCL/PF 1% 10 MG/ML 5ML VIAL ONE (15:32)
[2020-03-29] MEDS ORDERED: ETOMIDATE 2MG/ML 10ML VIAL IV ONE (15:32)
[2020-03-29] MEDS ORDERED: GLYCOPYRROLATE 0.2 MG/ML 2ML VIAL ONE (15:46)
[2020-03-29] MEDS: ATORVASTATIN CALCIUM 40MG TABLET PO SCH (20:02)
[2020-03-30] VITALS (9 sets, daily range): BP systolic 116–153; BP diastolic 65–93
[2020-03-30] MEDS: METOCLOPRAMIDE HCL 10MG/2ML VIAL IV SCH ×4 (00:12→17:16)
[2020-03-30] MEDS: SUCRALFATE 1 G/10 ML UDC PO SCH ×4 (05:53→20:47)
[2020-03-30 07:18] LABS: BASOPHILS % 0.1 % (0.0-2.0); EOSINOPHILS % 0.8 % (0.0-5.0); HEMATOCRIT. 26.7 % (42.0-52.0); LYMPHOCYTES % 16.3 % (20.0-50.0); MEAN CORPUSCULAR VOLUME 91.9 fL (80.0-94.0); MEAN PLATELET VOLUME 10.6 fl (7.4-10.4); MONOCYTES % 7.2 % (2.0-8.0); NEUTROPHILS % 75.6 % (40.0-76.0); PLATELET 129 x1000/uL (130-400); RED BLOOD CELL COUNT 2.91 mill/uL (4.7-6.1)
[2020-03-30] MEDS: AMLODIPINE 2.5MG TABLET PO SCH (08:13)
[2020-03-30] MEDS: PANTOPRAZOLE SODIUM 40 MG/VIAL IV SCH ×2 (08:13→20:47)
[2020-03-30] MEDS: CARVEDILOL 3.125 MG TABLET PO SCH ×2 (08:13→20:48)
[2020-03-30] MEDS: ASCORBIC ACID 500 MG TABLET PO SCH (08:13)
[2020-03-30] MEDS: FLUOXETINE HCL 20MG CAPSULE PO SCH (08:13)
[2020-03-30] MEDS: DEXAMETHASONE 10 MG/ML VIAL IV SCH (08:13)
[2020-03-30] MEDS: ZINC SULFATE 220 MG ( 50 ) CAPSULE PO SCH (08:13)
[2020-03-30 08:20] LABS: CHLORIDE 108 mEq/L (98-107)
[2020-03-30] MEDS: SODIUM CHLORIDE 0.9% 1,000 ML IV SCH (11:30)
[2020-03-30] MEDS: ATORVASTATIN CALCIUM 40MG TABLET PO SCH (20:48)
[2020-03-31] VITALS: BP 140/69
[2020-03-31 04:00] VITALS: BP 149/72
[2020-03-31] MEDS: METOCLOPRAMIDE HCL 10MG/2ML VIAL IV SCH ×4 (06:50→18:25)
[2020-03-31] MEDS: SODIUM CHLORIDE 0.9% 1,000 ML IV SCH (06:50)
[2020-03-31] MEDS: SUCRALFATE 1 G/10 ML UDC PO SCH ×4 (06:53→21:49)
[2020-03-31 07:21] LABS: BASOPHILS % 0.1 % (0.0-2.0); EOSINOPHILS % 0.8 % (0.0-5.0); HEMATOCRIT. 24.4 % (42.0-52.0); HEMOGLOBIN. 8.4 g/dL (14.0-18.0); LYMPHOCYTES % 24.5 % (20.0-50.0); MEAN CORPUSCULAR HEMOGLOBIN 31.4 pg (28.0-32.0); MEAN CORPUSCULAR VOLUME 91.4 fL (80.0-94.0); MEAN PLATELET VOLUME 10.5 fl (7.4-10.4); MONOCYTES % 9.5 % (2.0-8.0); NEUTROPHILS % 65.1 % (40.0-76.0); PLATELET 125 x1000/uL (130-400); RED BLOOD CELL COUNT 2.67 mill/uL (4.7-6.1); RED CELL DISTRIBUTION WIDTH 15.4 % (11.6-14.6)
[2020-03-31 07:28] LABS: CHLORIDE 104 mEq/L (98-107)
[2020-03-31 08:00] VITALS: BP 137/57
[2020-03-31] MEDS: ASCORBIC ACID 500 MG TABLET PO SCH (09:29)
[2020-03-31] MEDS: DEXAMETHASONE 10 MG/ML VIAL IV SCH (09:29)
[2020-03-31] MEDS: PANTOPRAZOLE SODIUM 40 MG/VIAL IV SCH ×2 (09:29→21:48)
[2020-03-31] MEDS: FLUOXETINE HCL 20MG CAPSULE PO SCH (09:29)
[2020-03-31] MEDS: ZINC SULFATE 220 MG ( 50 ) CAPSULE PO SCH (09:29)
[2020-03-31] MEDS: AMLODIPINE 2.5MG TABLET PO SCH (09:31)
[2020-03-31] MEDS: CARVEDILOL 3.125 MG TABLET PO SCH ×2 (09:32→21:49)
[2020-03-31 12:00] VITALS: BP 115/52
[2020-03-31 16:00] VITALS: BP 118/44
[2020-03-31] MEDS: LORAZEPAM 2MG/ML CPJ IV PRN (18:26)
[2020-03-31 20:00] VITALS: BP 154/76
[2020-03-31] MEDS: ATORVASTATIN CALCIUM 40MG TABLET PO SCH (21:48)
[2020-04-01] VITALS: BP 132/67
[2020-04-01] MEDS: METOCLOPRAMIDE HCL 10MG/2ML VIAL IV SCH ×4 (00:04→17:49)
[2020-04-01] MEDS: SODIUM CHLORIDE 0.9% 1,000 ML IV SCH (03:30)
[2020-04-01 04:00] VITALS: BP 149/74
[2020-04-01] MEDS: SUCRALFATE 1 G/10 ML UDC PO SCH ×4 (06:21→21:44)
[2020-04-01 08:00] VITALS: BP 139/64
[2020-04-01] MEDS: ASCORBIC ACID 500 MG TABLET PO SCH (08:45)
[2020-04-01] MEDS: ZINC SULFATE 220 MG ( 50 ) CAPSULE PO SCH (08:45)
[2020-04-01] MEDS: PANTOPRAZOLE SODIUM 40 MG/VIAL IV SCH ×2 (08:45→21:44)
[2020-04-01] MEDS: DEXAMETHASONE 10 MG/ML VIAL IV SCH (08:45)
[2020-04-01] MEDS: FLUOXETINE HCL 20MG CAPSULE PO SCH (08:46)
[2020-04-01] MEDS: CARVEDILOL 3.125 MG TABLET PO SCH ×2 (08:46→21:44)
[2020-04-01] MEDS: AMLODIPINE 2.5MG TABLET PO SCH (08:47)
[2020-04-01] MEDS: LORAZEPAM 2MG/ML CPJ IV PRN (09:13)
[2020-04-01 12:00] VITALS: BP 159/61
[2020-04-01] MEDS: CLONIDINE 0.1MG TABLET PO PRN (15:33)
[2020-04-01 16:00] VITALS: BP 176/78
[2020-04-01 20:00] VITALS: BP 158/76
[2020-04-01] MEDS: ATORVASTATIN CALCIUM 40MG TABLET PO SCH (21:45)
[2020-04-02] VITALS: BP 140/64
[2020-04-02] MEDS: METOCLOPRAMIDE HCL 10MG/2ML VIAL IV SCH ×4 (00:46→17:54)
[2020-04-02] MEDS: SODIUM CHLORIDE 0.9% 1,000 ML IV SCH (00:47)
[2020-04-02 04:00] VITALS: BP 152/72
[2020-04-02] MEDS: SUCRALFATE 1 G/10 ML UDC PO SCH ×4 (06:20→22:01)
[2020-04-02 08:00] VITALS: BP 142/62
[2020-04-02] MEDS: CARVEDILOL 3.125 MG TABLET PO SCH ×2 (08:52→22:04)
[2020-04-02] MEDS: FLUOXETINE HCL 20MG CAPSULE PO SCH (09:06)
[2020-04-02] MEDS: AMLODIPINE 2.5MG TABLET PO SCH (09:07)
[2020-04-02] MEDS: ZINC SULFATE 220 MG ( 50 ) CAPSULE PO SCH (09:07)
[2020-04-02] MEDS: DEXAMETHASONE 10 MG/ML VIAL IV SCH (09:07)
[2020-04-02] MEDS: ASCORBIC ACID 500 MG TABLET PO SCH (09:07)
[2020-04-02] MEDS: PANTOPRAZOLE SODIUM 40 MG/VIAL IV SCH ×2 (09:08→22:04)
[2020-04-02 12:00] VITALS: BP 114/63
[2020-04-02 16:00] VITALS: BP 135/76
[2020-04-02 20:00] VITALS: BP 128/60
[2020-04-02] MEDS: ATORVASTATIN CALCIUM 40MG TABLET PO SCH (22:01)
[2020-04-03] VITALS: BP 139/78
[2020-04-03 04:00] VITALS: BP 152/63
[2020-04-03] MEDS: SUCRALFATE 1 G/10 ML UDC PO SCH ×4 (07:01→21:33)
[2020-04-03] MEDS: METOCLOPRAMIDE HCL 10MG/2ML VIAL IV SCH ×2 (07:01)
[2020-04-03 08:00] VITALS: BP 161/72
[2020-04-03] MEDS: CARVEDILOL 3.125 MG TABLET PO SCH ×2 (09:00→21:34)
[2020-04-03] MEDS: ZINC SULFATE 220 MG ( 50 ) CAPSULE PO SCH (09:43)
[2020-04-03] MEDS: DEXAMETHASONE 10 MG/ML VIAL IV SCH (09:43)
[2020-04-03] MEDS: FLUOXETINE HCL 20MG CAPSULE PO SCH (09:43)
[2020-04-03] MEDS: AMLODIPINE 2.5MG TABLET PO SCH (09:43)
[2020-04-03] MEDS: ASCORBIC ACID 500 MG TABLET PO SCH (09:43)
[2020-04-03 12:00] VITALS: BP 140/68
[2020-04-03] MEDS: PANTOPRAZOLE SODIUM 40 MG/VIAL IV SCH ×2 (12:20→21:33)
[2020-04-03 16:00] VITALS: BP 123/71
[2020-04-03 20:00] VITALS: BP 128/70
[2020-04-03] MEDS: ATORVASTATIN CALCIUM 40MG TABLET PO SCH (21:33)
[2020-04-04] VITALS (7 sets, daily range): BP systolic 120–166; BP diastolic 56–81
[2020-04-04] MEDS: CLONIDINE 0.1MG TABLET PO PRN (04:17)
[2020-04-04] MEDS: SUCRALFATE 1 G/10 ML UDC PO SCH ×4 (06:28→21:07)
[2020-04-04 06:39] LABS: BASOPHILS % 0.3 % (0.0-2.0); EOSINOPHILS % 0.7 % (0.0-5.0); HEMATOCRIT. 24.9 % (42.0-52.0); HEMOGLOBIN. 8.5 g/dL (14.0-18.0); LYMPHOCYTES % 25.1 % (20.0-50.0); MEAN CORPUSCULAR HEMOGLOBIN 31.3 pg (28.0-32.0); MEAN CORPUSCULAR VOLUME 91.2 fL (80.0-94.0); MEAN PLATELET VOLUME 9.4 fl (7.4-10.4); NEUTROPHILS % 64.9 % (40.0-76.0); PLATELET 151 x1000/uL (130-400); RED BLOOD CELL COUNT 2.73 mill/uL (4.7-6.1); RED CELL DISTRIBUTION WIDTH 15.7 % (11.6-14.6)
[2020-04-04 06:49] LABS: CHLORIDE 106 mEq/L (98-107)
[2020-04-04] MEDS: DEXAMETHASONE 10 MG/ML VIAL IV SCH (08:54)
[2020-04-04] MEDS: ZINC SULFATE 220 MG ( 50 ) CAPSULE PO SCH (08:54)
[2020-04-04] MEDS: PANTOPRAZOLE SODIUM 40 MG/VIAL IV SCH ×2 (08:54→21:08)
[2020-04-04] MEDS: ASCORBIC ACID 500 MG TABLET PO SCH (08:55)
[2020-04-04] MEDS: FLUOXETINE HCL 20MG CAPSULE PO SCH (08:55)
[2020-04-04] MEDS: CARVEDILOL 3.125 MG TABLET PO SCH ×2 (08:55→21:07)
[2020-04-04] MEDS ORDERED: AMLODIPINE 5MG TABLET PO SCH (09:00)
[2020-04-04] MEDS ORDERED: POTASSIUM CHLORIDE 20MEQ TABLET SR PO NR (09:30)
[2020-04-04] MEDS: AMLODIPINE 5MG TABLET PO SCH ×2 (09:30→21:08)
[2020-04-04] MEDS: SODIUM CHLORIDE 0.9% 1,000 ML IV SCH (11:30)
[2020-04-04] MEDS: ATORVASTATIN CALCIUM 40MG TABLET PO SCH (21:08)
[2020-04-04 23:40] LABS: ETHANOL BLOOD < 10 mg/dL
[2020-04-04 23:44] LABS: LDL CHOLESTEROL 48 mg/dL (5-100)
[2020-04-04 23:45] LABS: HDL CHOLESTEROL 53 mg/dL (40-59)
[2020-04-04 23:46] LABS: T4 FREE 0.86 ng/dL (0.76-1.46)
[2020-04-04 23:56] LABS: FOLIC ACID (FOLATE) SERUM 6.3 ng/mL (>5.38)
[2020-04-05] VITALS: BP 135/74
[2020-04-05 04:00] VITALS: BP 136/81
[2020-04-05 06:05] LABS: BASOPHILS % 0.4 % (0.0-2.0); EOSINOPHILS % 1.3 % (0.0-5.0); HEMATOCRIT. 27.7 % (42.0-52.0); LYMPHOCYTES % 20.5 % (20.0-50.0); MEAN CORPUSCULAR HEMOGLOBIN 30.3 pg (28.0-32.0); MEAN CORPUSCULAR VOLUME 92.9 fL (80.0-94.0); MEAN PLATELET VOLUME 9.6 fl (7.4-10.4); MONOCYTES % 9.3 % (2.0-8.0); NEUTROPHILS % 68.5 % (40.0-76.0); PLATELET 156 x1000/uL (130-400); RED BLOOD CELL COUNT 2.98 mill/uL (4.7-6.1)
[2020-04-05 06:11] LABS: CHLORIDE 110 mEq/L (98-107)
[2020-04-05 08:00] VITALS: BP 146/74
[2020-04-05] MEDS: SUCRALFATE 1 G/10 ML UDC PO SCH ×4 (08:17→21:12)
[2020-04-05] MEDS: PANTOPRAZOLE SODIUM 40 MG/VIAL IV SCH ×2 (08:17→21:13)
[2020-04-05] MEDS: DEXAMETHASONE 10 MG/ML VIAL IV SCH (08:17)
[2020-04-05] MEDS: SODIUM CHLORIDE 0.9% 1,000 ML IV SCH (08:17)
[2020-04-05] MEDS: ASCORBIC ACID 500 MG TABLET PO SCH (08:18)
[2020-04-05] MEDS: AMLODIPINE 5MG TABLET PO SCH ×2 (08:18→21:13)
[2020-04-05] MEDS: FLUOXETINE HCL 20MG CAPSULE PO SCH (08:18)
[2020-04-05] MEDS: CARVEDILOL 3.125 MG TABLET PO SCH ×2 (08:18→21:13)
[2020-04-05] MEDS: ZINC SULFATE 220 MG ( 50 ) CAPSULE PO SCH (08:18)
[2020-04-05 12:00] VITALS: BP 146/67
[2020-04-05 16:00] VITALS: BP 131/70
[2020-04-05 20:00] VITALS: BP 132/70
[2020-04-05] MEDS: ATORVASTATIN CALCIUM 40MG TABLET PO SCH (21:13)
[2020-04-06] VITALS: BP 122/65
[2020-04-06] MEDS: SODIUM CHLORIDE 0.9% 1,000 ML IV SCH (03:30)
[2020-04-06 04:00] VITALS: BP 150/68
[2020-04-06 08:00] VITALS: BP 141/69
[2020-04-06] MEDS: PANTOPRAZOLE SODIUM 40 MG/VIAL IV SCH ×2 (09:16→21:31)
[2020-04-06] MEDS: ZINC SULFATE 220 MG ( 50 ) CAPSULE PO SCH (09:17)
[2020-04-06] MEDS: DEXAMETHASONE 10 MG/ML VIAL IV SCH (09:17)
[2020-04-06] MEDS: AMLODIPINE 5MG TABLET PO SCH ×2 (09:17→21:33)
[2020-04-06] MEDS: ASCORBIC ACID 500 MG TABLET PO SCH (09:18)
[2020-04-06] MEDS: CARVEDILOL 3.125 MG TABLET PO SCH ×2 (09:18→21:31)
[2020-04-06] MEDS: SUCRALFATE 1 G/10 ML UDC PO SCH ×4 (09:18→21:30)
[2020-04-06] MEDS: FLUOXETINE HCL 20MG CAPSULE PO SCH (09:18)
[2020-04-06] MEDS: CYANOCOBALAMIN 1000MCG/ML VIAL IM SCH (11:03)
[2020-04-06 12:00] VITALS: BP 151/88
[2020-04-06 16:00] VITALS: BP 150/78
[2020-04-06 20:00] VITALS: BP 141/63
[2020-04-06] MEDS: ATORVASTATIN CALCIUM 40MG TABLET PO SCH (21:31)
[2020-04-07] VITALS: BP 106/51
[2020-04-07 04:00] VITALS: BP 126/53
[2020-04-07] MEDS: SUCRALFATE 1 G/10 ML UDC PO SCH ×4 (06:20→21:34)
[2020-04-07 08:00] VITALS: BP 111/56
[2020-04-07] MEDS: PANTOPRAZOLE SODIUM 40 MG/VIAL IV SCH ×2 (09:37→21:34)
[2020-04-07] MEDS: FLUOXETINE HCL 20MG CAPSULE PO SCH (09:37)
[2020-04-07] MEDS: ASCORBIC ACID 500 MG TABLET PO SCH (09:37)
[2020-04-07] MEDS: CYANOCOBALAMIN 1000MCG/ML VIAL IM SCH (09:37)
[2020-04-07] MEDS: AMLODIPINE 5MG TABLET PO SCH ×2 (09:37→21:34)
[2020-04-07] MEDS: ZINC SULFATE 220 MG ( 50 ) CAPSULE PO SCH (09:37)
[2020-04-07] MEDS: DEXAMETHASONE 10 MG/ML VIAL IV SCH (09:37)
[2020-04-07] MEDS: CARVEDILOL 3.125 MG TABLET PO SCH ×2 (09:38→21:33)
[2020-04-07 12:00] VITALS: BP 97/50
[2020-04-07 16:00] VITALS: BP 139/71
[2020-04-07] MEDS: RIVAROXABAN 15 MG TABLET PO SCH (17:10)
[2020-04-07 20:00] VITALS: BP 121/77
[2020-04-07] MEDS: ATORVASTATIN CALCIUM 40MG TABLET PO SCH (21:34)
[2020-04-07] MEDS: SODIUM CHLORIDE 0.9% 1,000 ML IV SCH (21:35)
[2020-04-08] VITALS: BP 123/66
[2020-04-08 04:00] VITALS: BP 141/67
[2020-04-08] MEDS: SUCRALFATE 1 G/10 ML UDC PO SCH ×4 (06:14→21:46)
[2020-04-08 07:01] LABS: BASOPHILS % 0.7 % (0.0-2.0); EOSINOPHILS % 0.1 % (0.0-5.0); HEMATOCRIT. 27.6 % (42.0-52.0); HEMOGLOBIN. 9.3 g/dL (14.0-18.0); LYMPHOCYTES % 11.6 % (20.0-50.0); MEAN CORPUSCULAR HEMOGLOBIN 30.9 pg (28.0-32.0); MEAN CORPUSCULAR VOLUME 91.4 fL (80.0-94.0); MEAN PLATELET VOLUME 9.6 fl (7.4-10.4); MONOCYTES % 7.1 % (2.0-8.0); NEUTROPHILS % 80.5 % (40.0-76.0); PLATELET 191 x1000/uL (130-400); RED BLOOD CELL COUNT 3.02 mill/uL (4.7-6.1); RED CELL DISTRIBUTION WIDTH 15.9 % (11.6-14.6)
[2020-04-08 07:04] LABS: CHLORIDE 105 mEq/L (98-107)
[2020-04-08 08:00] VITALS: BP 160/77
[2020-04-08] MEDS: DEXAMETHASONE 10 MG/ML VIAL IV SCH (09:18)
[2020-04-08] MEDS: CYANOCOBALAMIN 1000MCG/ML VIAL IM SCH (09:18)
[2020-04-08] MEDS: CARVEDILOL 3.125 MG TABLET PO SCH ×2 (09:18→21:47)
[2020-04-08] MEDS: ASCORBIC ACID 500 MG TABLET PO SCH (09:18)
[2020-04-08] MEDS: PANTOPRAZOLE SODIUM 40 MG/VIAL IV SCH ×2 (09:18→21:47)
[2020-04-08] MEDS: AMLODIPINE 5MG TABLET PO SCH ×2 (09:18→21:47)
[2020-04-08] MEDS: FLUOXETINE HCL 20MG CAPSULE PO SCH (09:18)
[2020-04-08] MEDS: ZINC SULFATE 220 MG ( 50 ) CAPSULE PO SCH (09:18)
[2020-04-08] MEDS: POTASSIUM CHLORIDE 20MEQ/PACKET PO NR ×2 (11:32→12:40)
[2020-04-08 12:00] VITALS: BP 105/63
[2020-04-08 16:00] VITALS: BP 124/67
[2020-04-08] MEDS: SODIUM CHLORIDE 0.9% 1,000 ML IV SCH (16:37)
[2020-04-08] MEDS: RIVAROXABAN 15 MG TABLET PO SCH (16:37)
[2020-04-08 20:05] VITALS: BP 132/67
[2020-04-08] MEDS: ATORVASTATIN CALCIUM 40MG TABLET PO SCH (21:47)
[2020-04-09 04:00] VITALS: BP 127/61
[2020-04-09 06:28] LABS: CHLORIDE 106 mEq/L (98-107)
[2020-04-09 06:43] LABS: BASOPHILS % 0.4 % (0.0-2.0); EOSINOPHILS % 0.2 % (0.0-5.0); HEMATOCRIT. 25.9 % (42.0-52.0); HEMOGLOBIN. 8.8 g/dL (14.0-18.0); LYMPHOCYTES % 15.1 % (20.0-50.0); MEAN CORPUSCULAR HEMOGLOBIN 30.9 pg (28.0-32.0); MEAN CORPUSCULAR VOLUME 91.4 fL (80.0-94.0); MONOCYTES % 8.2 % (2.0-8.0); NEUTROPHILS % 76.1 % (40.0-76.0); PLATELET 189 x1000/uL (130-400); RED BLOOD CELL COUNT 2.83 mill/uL (4.7-6.1); RED CELL DISTRIBUTION WIDTH 15.9 % (11.6-14.6)
[2020-04-09] MEDS: SUCRALFATE 1 G/10 ML UDC PO SCH ×4 (06:49→22:22)
[2020-04-09 08:00] VITALS: BP 166/82
[2020-04-09] MEDS: CYANOCOBALAMIN 1000MCG/ML VIAL IM SCH (08:47)
[2020-04-09] MEDS: ASCORBIC ACID 500 MG TABLET PO SCH (08:47)
[2020-04-09] MEDS: PANTOPRAZOLE SODIUM 40 MG/VIAL IV SCH ×2 (08:47→22:22)
[2020-04-09] MEDS: ZINC SULFATE 220 MG ( 50 ) CAPSULE PO SCH (08:47)
[2020-04-09] MEDS: FLUOXETINE HCL 20MG CAPSULE PO SCH (08:47)
[2020-04-09] MEDS: AMLODIPINE 5MG TABLET PO SCH ×2 (08:53→22:21)
[2020-04-09] MEDS: CARVEDILOL 3.125 MG TABLET PO SCH ×2 (08:54→22:22)
[2020-04-09] MEDS: DEXAMETHASONE 10 MG/ML VIAL IV SCH (08:54)
[2020-04-09] MEDS ORDERED: POTASSIUM CHLORIDE 20MEQ TABLET SR PO NR (09:15)
[2020-04-09 12:00] VITALS: BP 158/77
[2020-04-09] MEDS: SODIUM CHLORIDE 0.9% 1,000 ML IV SCH (12:53)
[2020-04-09 16:00] VITALS: BP 132/68
[2020-04-09] MEDS: RIVAROXABAN 15 MG TABLET PO SCH (17:13)
[2020-04-09 20:00] VITALS: BP 142/72
[2020-04-09] MEDS: ATORVASTATIN CALCIUM 40MG TABLET PO SCH (22:22)
[2020-04-10] VITALS: BP 141/61
[2020-04-10 04:00] VITALS: BP 139/78
[2020-04-10 06:31] LABS: BASOPHILS % 0.5 % (0.0-2.0); EOSINOPHILS % 0.2 % (0.0-5.0); HEMATOCRIT. 28.1 % (42.0-52.0); HEMOGLOBIN. 9.5 g/dL (14.0-18.0); LYMPHOCYTES % 20.2 % (20.0-50.0); MEAN CORPUSCULAR HEMOGLOBIN 30.9 pg (28.0-32.0); MEAN CORPUSCULAR VOLUME 91.1 fL (80.0-94.0); MEAN PLATELET VOLUME 8.9 fl (7.4-10.4); MONOCYTES % 8.6 % (2.0-8.0); NEUTROPHILS % 70.5 % (40.0-76.0); PLATELET 210 x1000/uL (130-400); RED BLOOD CELL COUNT 3.09 mill/uL (4.7-6.1); RED CELL DISTRIBUTION WIDTH 15.6 % (11.6-14.6)
[2020-04-10] MEDS: SUCRALFATE 1 G/10 ML UDC PO SCH ×4 (06:48→20:46)
[2020-04-10] MEDS: SODIUM CHLORIDE 0.9% 1,000 ML IV SCH ×2 (06:49→21:09)
[2020-04-10 07:11] LABS: CHLORIDE 107 mEq/L (98-107)
[2020-04-10 08:00] VITALS: BP 136/65
[2020-04-10] MEDS: CARVEDILOL 3.125 MG TABLET PO SCH ×2 (09:17→20:47)
[2020-04-10] MEDS: ZINC SULFATE 220 MG ( 50 ) CAPSULE PO SCH (09:17)
[2020-04-10] MEDS: DEXAMETHASONE 10 MG/ML VIAL IV SCH (09:17)
[2020-04-10] MEDS: PANTOPRAZOLE SODIUM 40 MG/VIAL IV SCH ×2 (09:17→20:45)
[2020-04-10] MEDS: FLUOXETINE HCL 20MG CAPSULE PO SCH (09:17)
[2020-04-10] MEDS: ASCORBIC ACID 500 MG TABLET PO SCH (09:17)
[2020-04-10] MEDS: CYANOCOBALAMIN 1000MCG/ML VIAL IM SCH (09:17)
[2020-04-10] MEDS: AMLODIPINE 5MG TABLET PO SCH ×2 (09:17→20:46)
[2020-04-10 12:00] VITALS: BP 133/66
[2020-04-10 16:00] VITALS: BP 120/57
[2020-04-10] MEDS: RIVAROXABAN 20 MG TABLET PO SCH (16:26)
[2020-04-10 20:00] VITALS: BP 131/60
[2020-04-10] MEDS: ATORVASTATIN CALCIUM 40MG TABLET PO SCH (20:46)
[2020-04-11] VITALS: BP 138/68
[2020-04-11 04:00] VITALS: BP 132/62
[2020-04-11] MEDS: SUCRALFATE 1 G/10 ML UDC PO SCH ×4 (06:34→21:34)
[2020-04-11 08:00] VITALS: BP 150/73
[2020-04-11] MEDS: AMLODIPINE 5MG TABLET PO SCH ×2 (09:19→21:33)
[2020-04-11] MEDS: ASCORBIC ACID 500 MG TABLET PO SCH (09:19)
[2020-04-11] MEDS: ZINC SULFATE 220 MG ( 50 ) CAPSULE PO SCH (09:20)
[2020-04-11] MEDS: CARVEDILOL 3.125 MG TABLET PO SCH ×2 (09:20→21:34)
[2020-04-11] MEDS: PANTOPRAZOLE SODIUM 40 MG/VIAL IV SCH ×2 (09:22→21:34)
[2020-04-11] MEDS: DEXAMETHASONE 10 MG/ML VIAL IV SCH (09:23)
[2020-04-11 12:00] VITALS: BP 119/54
[2020-04-11 13:07] LABS: BASOPHILS % 0.2 % (0.0-2.0); EOSINOPHILS % 0.1 % (0.0-5.0); HEMOGLOBIN. 9.3 g/dL (14.0-18.0); LYMPHOCYTES % 8.6 % (20.0-50.0); MEAN CORPUSCULAR HEMOGLOBIN 30.3 pg (28.0-32.0); MEAN CORPUSCULAR VOLUME 91.4 fL (80.0-94.0); MONOCYTES % 3.5 % (2.0-8.0); NEUTROPHILS % 87.6 % (40.0-76.0); PLATELET 203 x1000/uL (130-400); RED BLOOD CELL COUNT 3.06 mill/uL (4.7-6.1); RED CELL DISTRIBUTION WIDTH 15.2 % (11.6-14.6)
[2020-04-11 13:18] LABS: CHLORIDE 105 mEq/L (98-107)
[2020-04-11 16:00] VITALS: BP 131/64
[2020-04-11] MEDS: RIVAROXABAN 20 MG TABLET PO SCH (17:58)
[2020-04-11 20:00] VITALS: BP 139/80
[2020-04-12] VITALS: BP 131/74
[2020-04-12 04:00] VITALS: BP 134/66
[2020-04-12] MEDS: SUCRALFATE 1 G/10 ML UDC PO SCH ×4 (06:08→21:12)
[2020-04-12 08:00] VITALS: BP 164/87
[2020-04-12] MEDS: CARVEDILOL 3.125 MG TABLET PO SCH ×2 (08:53→21:12)
[2020-04-12] MEDS: PANTOPRAZOLE SODIUM 40 MG/VIAL IV SCH ×2 (08:53→21:13)
[2020-04-12] MEDS: ASCORBIC ACID 500 MG TABLET PO SCH (08:53)
[2020-04-12] MEDS: AMLODIPINE 5MG TABLET PO SCH ×2 (08:53→21:12)
[2020-04-12] MEDS: DEXAMETHASONE 10 MG/ML VIAL IV SCH (08:53)
[2020-04-12] MEDS: ZINC SULFATE 220 MG ( 50 ) CAPSULE PO SCH (08:53)
[2020-04-12 12:00] VITALS: BP 125/61
[2020-04-12 16:00] VITALS: BP 124/70
[2020-04-12] MEDS: RIVAROXABAN 20 MG TABLET PO SCH (17:02)
[2020-04-12] MEDS: SODIUM CHLORIDE 0.9% 1,000 ML IV SCH (19:30)
[2020-04-12 22:05] VITALS: BP 125/66
[2020-04-13] VITALS: BP 135/57
[2020-04-13 04:00] VITALS: BP 135/63
[2020-04-13] MEDS: SUCRALFATE 1 G/10 ML UDC PO SCH ×4 (06:38→21:52)
[2020-04-13 08:00] VITALS: BP 187/91
[2020-04-13] MEDS: PANTOPRAZOLE SODIUM 40 MG/VIAL IV SCH ×2 (09:38→21:53)
[2020-04-13] MEDS: CARVEDILOL 3.125 MG TABLET PO SCH ×2 (09:38→21:53)
[2020-04-13] MEDS: ASCORBIC ACID 500 MG TABLET PO SCH (09:38)
[2020-04-13] MEDS: AMLODIPINE 5MG TABLET PO SCH ×2 (09:38→21:53)
[2020-04-13] MEDS: ZINC SULFATE 220 MG ( 50 ) CAPSULE PO SCH (09:38)
[2020-04-13] MEDS: LACTULOSE 20G/30ML UDC PO SCH ×3 (09:48→16:21)
[2020-04-13 12:00] VITALS: BP 120/71
[2020-04-13] MEDS: SODIUM CHLORIDE 0.9% 1,000 ML IV SCH (15:30)
[2020-04-13 16:00] VITALS: BP 126/58
[2020-04-13] MEDS: RIVAROXABAN 20 MG TABLET PO SCH (16:21)
[2020-04-13 17:06] LABS: 25-HYDROXY VITAMIN D3 8.6 ng/mL (.)
[2020-04-13 20:00] VITALS: BP 143/77
[2020-04-14] VITALS: BP 131/75
[2020-04-14 04:00] VITALS: BP 147/68
[2020-04-14] MEDS: SUCRALFATE 1 G/10 ML UDC PO SCH ×4 (06:40→22:33)
[2020-04-14 08:00] VITALS: BP 133/58
[2020-04-14] MEDS: CARVEDILOL 3.125 MG TABLET PO SCH ×2 (08:59→22:34)
[2020-04-14] MEDS: PANTOPRAZOLE SODIUM 40 MG/VIAL IV SCH ×2 (08:59→22:34)
[2020-04-14] MEDS: AMLODIPINE 5MG TABLET PO SCH ×2 (08:59→22:34)
[2020-04-14 12:00] VITALS: BP 104/58
[2020-04-14 16:00] VITALS: BP 98/51
[2020-04-14] MEDS: RIVAROXABAN 20 MG TABLET PO SCH (17:03)
[2020-04-14] MEDS: ERGOCALCIFEROL 50000UNITS CAPSULE PO SCH (17:03)
[2020-04-14 21:28] VITALS: BP 111/51
[2020-04-14] MEDS: SODIUM CHLORIDE 0.9% 1,000 ML IV SCH (22:36)
[2020-04-15 00:49] VITALS: BP 102/48
[2020-04-15 04:58] VITALS: BP 102/48
[2020-04-15] MEDS: SUCRALFATE 1 G/10 ML UDC PO SCH ×5 (07:10→23:01)
[2020-04-15 08:00] VITALS: BP 118/62
[2020-04-15] MEDS: AMLODIPINE 5MG TABLET PO SCH ×2 (09:15→23:00)
[2020-04-15] MEDS: CARVEDILOL 3.125 MG TABLET PO SCH ×2 (09:15→23:00)
[2020-04-15] MEDS: SODIUM CHLORIDE 0.9% 1,000 ML IV SCH ×2 (09:18→20:52)
[2020-04-15] MEDS: PANTOPRAZOLE SODIUM 40 MG/VIAL IV SCH ×2 (11:42→22:59)
[2020-04-15] MEDS: RIVAROXABAN 20 MG TABLET PO SCH (16:28)
[2020-04-15 20:00] VITALS: BP 112/56
[2020-04-16] VITALS: BP 118/65
[2020-04-16 04:00] VITALS: BP 133/74
[2020-04-16 08:00] VITALS: BP 114/56
[2020-04-16] MEDS: CARVEDILOL 3.125 MG TABLET PO SCH ×2 (09:02→21:37)
[2020-04-16] MEDS: AMLODIPINE 5MG TABLET PO SCH ×2 (09:02→21:37)
[2020-04-16] MEDS: PANTOPRAZOLE SODIUM 40 MG/VIAL IV SCH ×2 (09:02→21:37)
[2020-04-16 12:00] VITALS: BP 132/66
[2020-04-16] MEDS: SUCRALFATE 1 G/10 ML UDC PO SCH ×3 (14:11→21:37)
[2020-04-16] MEDS: RIVAROXABAN 20 MG TABLET PO SCH (17:38)
[2020-04-16 20:00] VITALS: BP 146/72
[2020-04-16] MEDS: SODIUM CHLORIDE 0.9% 1,000 ML IV SCH (22:44)
[2020-04-17] VITALS: BP 139/70
[2020-04-17 04:00] VITALS: BP 131/73
[2020-04-17] MEDS: SUCRALFATE 1 G/10 ML UDC PO SCH ×4 (07:38→21:27)
[2020-04-17 08:00] VITALS: BP 141/69
[2020-04-17] MEDS: CARVEDILOL 3.125 MG TABLET PO SCH ×2 (09:21→21:34)
[2020-04-17] MEDS: PANTOPRAZOLE SODIUM 40 MG/VIAL IV SCH ×2 (09:21→21:28)
[2020-04-17] MEDS: AMLODIPINE 5MG TABLET PO SCH ×2 (09:21→21:00)
[2020-04-17 12:00] VITALS: BP 143/74
[2020-04-17 16:00] VITALS: BP 128/74
[2020-04-17] MEDS: RIVAROXABAN 20 MG TABLET PO SCH (16:59)
[2020-04-17] MEDS: SODIUM CHLORIDE 0.9% 1,000 ML IV SCH (19:02)
[2020-04-17 20:00] VITALS: BP 106/50
[2020-04-18] VITALS: BP 101/53
[2020-04-18 04:00] VITALS: BP 102/49
[2020-04-18] MEDS: SUCRALFATE 1 G/10 ML UDC PO SCH ×4 (06:26→20:21)
[2020-04-18 07:51] LABS: BASOPHILS % 0.6 % (0.0-2.0); HEMATOCRIT. 28.2 % (42.0-52.0); HEMOGLOBIN. 9.3 g/dL (14.0-18.0); MEAN CORPUSCULAR HEMOGLOBIN 30.2 pg (28.0-32.0); MEAN CORPUSCULAR VOLUME 91.4 fL (80.0-94.0); MEAN PLATELET VOLUME 8.9 fl (7.4-10.4); MONOCYTES % 14.8 % (2.0-8.0); NEUTROPHILS % 54.6 % (40.0-76.0); PLATELET 184 x1000/uL (130-400); RED BLOOD CELL COUNT 3.08 mill/uL (4.7-6.1); RED CELL DISTRIBUTION WIDTH 15.3 % (11.6-14.6)
[2020-04-18 07:58] LABS: CHLORIDE 108 mEq/L (98-107)
[2020-04-18 08:00] VITALS: BP 125/73
[2020-04-18] MEDS: AMLODIPINE 5MG TABLET PO SCH ×2 (09:22→20:21)
[2020-04-18] MEDS: CARVEDILOL 3.125 MG TABLET PO SCH ×2 (09:22→20:21)
[2020-04-18] MEDS: PANTOPRAZOLE SODIUM 40 MG/VIAL IV SCH ×2 (09:22→20:21)
[2020-04-18 12:00] VITALS: BP 133/65
[2020-04-18] MEDS: SODIUM CHLORIDE 0.9% 1,000 ML IV SCH (15:30)
[2020-04-18 16:00] VITALS: BP 124/51
[2020-04-18] MEDS: RIVAROXABAN 20 MG TABLET PO SCH (17:19)
[2020-04-18 20:00] VITALS: BP 123/65
[2020-04-19] VITALS: BP 123/62
[2020-04-19 04:00] VITALS: BP 126/72
[2020-04-19] MEDS: SUCRALFATE 1 G/10 ML UDC PO SCH ×4 (06:37→21:58)
[2020-04-19 08:00] VITALS: BP 134/68
[2020-04-19] MEDS: AMLODIPINE 5MG TABLET PO SCH ×2 (08:42→21:58)
[2020-04-19] MEDS: CARVEDILOL 3.125 MG TABLET PO SCH ×2 (08:42→21:58)
[2020-04-19] MEDS: PANTOPRAZOLE SODIUM 40 MG/VIAL IV SCH ×2 (08:43→21:58)
[2020-04-19 12:00] VITALS: BP 118/52
[2020-04-19 16:00] VITALS: BP 111/63
[2020-04-19] MEDS: RIVAROXABAN 20 MG TABLET PO SCH (17:29)
[2020-04-19] MEDS: SODIUM CHLORIDE 0.9% 1,000 ML IV SCH (17:30)
[2020-04-19 20:00] VITALS: BP 133/61
[2020-04-20] VITALS: BP 120/62
[2020-04-20 04:00] VITALS: BP 129/53
[2020-04-20] MEDS: SUCRALFATE 1 G/10 ML UDC PO SCH ×4 (06:33→20:52)
[2020-04-20] MEDS: SODIUM CHLORIDE 0.9% 1,000 ML IV SCH (06:33)
[2020-04-20 08:00] VITALS: BP 117/63
[2020-04-20] MEDS: AMLODIPINE 5MG TABLET PO SCH ×2 (08:52→20:52)
[2020-04-20] MEDS: CARVEDILOL 3.125 MG TABLET PO SCH ×2 (08:53→20:52)
[2020-04-20] MEDS: PANTOPRAZOLE SODIUM 40 MG/VIAL IV SCH ×2 (08:53→20:51)
[2020-04-20 09:04] LABS: BASOPHILS % 0.7 % (0.0-2.0); EOSINOPHILS % 0.4 % (0.0-5.0); HEMATOCRIT. 31.5 % (42.0-52.0); HEMOGLOBIN. 10.3 g/dL (14.0-18.0); LYMPHOCYTES % 16.6 % (20.0-50.0); MEAN CORPUSCULAR HEMOGLOBIN 29.6 pg (28.0-32.0); MEAN CORPUSCULAR VOLUME 90.8 fL (80.0-94.0); MEAN PLATELET VOLUME 8.9 fl (7.4-10.4); MONOCYTES % 11.8 % (2.0-8.0); NEUTROPHILS % 70.5 % (40.0-76.0); PLATELET 191 x1000/uL (130-400); RED BLOOD CELL COUNT 3.47 mill/uL (4.7-6.1); RED CELL DISTRIBUTION WIDTH 14.5 % (11.6-14.6)
[2020-04-20 09:15] LABS: CHLORIDE 106 mEq/L (98-107)
[2020-04-20 12:00] VITALS: BP 119/63
[2020-04-20 16:00] VITALS: BP 114/57
[2020-04-20] MEDS: RIVAROXABAN 20 MG TABLET PO SCH (17:42)
[2020-04-20 20:00] VITALS: BP 119/50
[2020-04-21] VITALS: BP 99/58
[2020-04-21] MEDS: SODIUM CHLORIDE 0.9% 1,000 ML IV SCH ×2 (03:30→23:30)
[2020-04-21 04:00] VITALS: BP 104/59
[2020-04-21] MEDS: SUCRALFATE 1 G/10 ML UDC PO SCH ×4 (06:23→21:14)
[2020-04-21 08:00] VITALS: BP 109/65
[2020-04-21] MEDS: AMLODIPINE 5MG TABLET PO SCH ×2 (09:00→21:15)
[2020-04-21] MEDS: ERGOCALCIFEROL 50000UNITS CAPSULE PO SCH (09:09)
[2020-04-21] MEDS: CARVEDILOL 3.125 MG TABLET PO SCH ×2 (09:09→21:14)
[2020-04-21 12:00] VITALS: BP 107/56
[2020-04-21 16:00] VITALS: BP 107/46
[2020-04-21] MEDS: RIVAROXABAN 20 MG TABLET PO SCH (17:32)
[2020-04-21 20:00] VITALS: BP 125/68
[2020-04-22] VITALS: BP 117/63
[2020-04-22 04:00] VITALS: BP 90/48
[2020-04-22 08:00] VITALS: BP 119/66
[2020-04-22] MEDS: AMLODIPINE 5MG TABLET PO SCH ×2 (09:27→20:40)
[2020-04-22] MEDS: CARVEDILOL 3.125 MG TABLET PO SCH ×2 (09:27→20:40)
[2020-04-22] MEDS: SUCRALFATE 1 G/10 ML UDC PO SCH ×2 (09:27→12:24)
[2020-04-22 12:00] VITALS: BP 118/55
[2020-04-22 16:00] VITALS: BP 123/63
[2020-04-22] MEDS: RIVAROXABAN 20 MG TABLET PO SCH (17:12)
[2020-04-22 20:00] VITALS: BP 111/53
[2020-04-23] VITALS: BP 116/55
[2020-04-23 04:00] VITALS: BP 118/58
[2020-04-23 08:00] VITALS: BP 105/57
[2020-04-23] MEDS: AMLODIPINE 5MG TABLET PO SCH ×2 (10:01→20:35)
[2020-04-23] MEDS: LACTULOSE 20G/30ML UDC PO SCH ×4 (10:01→20:35)
[2020-04-23] MEDS: CARVEDILOL 3.125 MG TABLET PO SCH ×2 (10:02→20:35)
[2020-04-23 12:00] VITALS: BP 110/65
[2020-04-23 16:00] VITALS: BP 135/78
[2020-04-23] MEDS: RIVAROXABAN 20 MG TABLET PO SCH (17:56)
[2020-04-23 20:00] VITALS: BP 121/62
[2020-04-24] VITALS: BP 125/72
[2020-04-24 04:00] VITALS: BP 144/77
[2020-04-24 08:00] VITALS: BP 120/60
[2020-04-24] MEDS: CARVEDILOL 3.125 MG TABLET PO SCH ×2 (10:01→20:54)
[2020-04-24] MEDS: AMLODIPINE 5MG TABLET PO SCH ×2 (10:02→20:53)
[2020-04-24] MEDS: LACTULOSE 20G/30ML UDC PO SCH ×4 (10:04→20:53)
[2020-04-24 12:00] VITALS: BP 110/60
[2020-04-24 16:00] VITALS: BP 128/68
[2020-04-24] MEDS: RIVAROXABAN 20 MG TABLET PO SCH (17:33)
[2020-04-24 20:00] VITALS: BP 117/62
[2020-04-25] VITALS: BP 112/65
[2020-04-25 04:00] VITALS: BP 115/60
[2020-04-25 08:00] VITALS: BP 114/55
[2020-04-25] MEDS: LACTULOSE 20G/30ML UDC PO SCH ×4 (09:11→21:30)
[2020-04-25] MEDS: CARVEDILOL 3.125 MG TABLET PO SCH (09:11)
[2020-04-25] MEDS: AMLODIPINE 5MG TABLET PO SCH ×2 (09:12→21:29)
[2020-04-25 12:00] VITALS: BP 106/65
[2020-04-25] MEDS: SUCRALFATE 1G TABLET PO SCH ×3 (13:45→21:29)
[2020-04-25 16:00] VITALS: BP 113/64
[2020-04-25] MEDS: RIVAROXABAN 20 MG TABLET PO SCH (16:29)
[2020-04-25 20:00] VITALS: BP 114/63
[2020-04-26] VITALS: BP 165/87
[2020-04-26 04:00] VITALS: BP 125/68
[2020-04-26] MEDS: SUCRALFATE 1G TABLET PO SCH ×3 (05:54→17:31)
[2020-04-26 08:00] VITALS: BP_SYST 104; BP_SYST 56; BP_DIAS 56
[2020-04-26] MEDS: LACTULOSE 20G/30ML UDC PO SCH ×3 (09:32→17:31)
[2020-04-26] MEDS: AMLODIPINE 5MG TABLET PO SCH (09:33)
[2020-04-26 12:00] VITALS: BP 102/67
[2020-04-26] MEDS: RIVAROXABAN 20 MG TABLET PO SCH (17:31)
[2020-04-26 17:49] VITALS: BP 102/67
== END 2020-04-26 18:55 | DRG 133 ==
LOC: ER 13:01 → 7WST 17:24 → ENRESERV 03-13 08:39 → 5WST 03-13 23:37 → 6EST 03-18 11:23 → 3WST 03-23 23:38 → 6EST 03-30 11:29
PROVIDERS: ADMIT Internal Medicine; ATTEND Internal Medicine
PROC: 30233N1 Transfusion of Nonautologous Red Blood Cells into Peripheral Vein, Percutaneous Approach (ICD-10-PCS; principal; 2020-03-24)
PROC: 0DB78ZX Excision of Stomach, Pylorus, Via Natural or Artificial Opening Endoscopic, Diagnostic (ICD-10-PCS; 2020-03-29)
DX: J96.00 Acute respiratory failure, unspecified whether with hypoxia or hypercapnia (principal); J18.9 Pneumonia, unspecified organism; I50.22 Chronic systolic (congestive) heart failure; N39.0 Urinary tract infection, site not specified; I11.0 Hypertensive heart disease with heart failure; I27.82 Chronic pulmonary embolism; A59.9 Trichomoniasis, unspecified; F17.200 Nicotine dependence, unspecified, uncomplicated; I25.10 Atherosclerotic heart disease of native coronary artery without angina pectoris; Z20.822 Contact with and (suspected) exposure to COVID-19; I42.6 Alcoholic cardiomyopathy; D63.8 Anemia in other chronic diseases classified elsewhere; F10.10 Alcohol abuse, uncomplicated; F17.210 Nicotine dependence, cigarettes, uncomplicated; E88.09 Other disorders of plasma-protein metabolism, not elsewhere classified; I48.0 Paroxysmal atrial fibrillation; Y90.9 Presence of alcohol in blood, level not specified; R26.89 Other abnormalities of gait and mobility; R13.10 Dysphagia, unspecified; D69.6 Thrombocytopenia, unspecified; K44.9 Diaphragmatic hernia without obstruction or gangrene; E55.9 Vitamin D deficiency, unspecified; E87.6 Hypokalemia; E43 Unspecified severe protein-calorie malnutrition; K29.71 Gastritis, unspecified, with bleeding; K25.4 Chronic or unspecified gastric ulcer with hemorrhage; I63.9 Cerebral infarction, unspecified; I65.23 Occlusion and stenosis of bilateral carotid arteries; Z95.1 Presence of aortocoronary bypass graft; Z86.718 Personal history of other venous thrombosis and embolism; Z97.0 Presence of artificial eye; Z79.01 Long term (current) use of anticoagulants; Z91.19 Patient's noncompliance with other medical treatment and regimen; Z79.82 Long term (current) use of aspirin; Z79.899 Other long term (current) drug therapy; Z79.891 Long term (current) use of opiate analgesic; Z59.0 Homelessness; Z87.01 Personal history of pneumonia (recurrent); Z68.1 Body mass index [BMI] 19.9 or less, adult; I69.354 Hemiplegia and hemiparesis following cerebral infarction affecting left non-dominant side
CPT/HCPCS: 36415; 36600; 70544; 70551; 71045; 80048; 80053; 80061; 80320; 81003; 82140; 82270; 82306; 82375; 82607; 82728; 82746; 82805; 82962; 83036; 83540; 83550; 83605; 83615; 83735; 83880; 84100; 84132; 84145; 84439; 84443; 84481; 84484; 85025; 85384; 86140; 86850; 86900; 86920; 87426; 88305; 88313; 93005; 93306; 93880; 93970; 97110; 97116; 97162; 97164; 97166; 97530; 97535; 99291; C1893; C9113; J0696; J1100; J1650; J2020; J2060; J2250; J2405; J2543; J2704; J2765; J3370; J3420; J3490; J7030; J7040; J7060; P9016; U0003; G0480